=== PATIENT | male | born 1950 | race Caucasian/White ===

== ENCOUNTER 2018-03-02 15:11 | Inpatient (IN) | payer MEDICARE, SELFPAY ==
[2018-03-02] VITALS (8 sets, daily range): BP systolic 84–138; BP diastolic 62–97; PULSE 94–118; RESP 15–19; TEMP 36.9–37.1; O2SAT 96–98; BMI 29.7
--- NOTE | 2018-03-02 15:24 | EKG12_ITS ---
Test Reason : SYNCOPE Blood Pressure : / mmHG Vent. Rate : 105 BPM Atrial Rate : 159 BPM P-R Int : 000 ms QRS Dur : 090 ms QT Int : 350 ms P-R-T Axes : 000 -55 -08 degrees QTc Int : 462 ms Atrial fibrillation Left anterior fascicular block Poor R wave progression Abnormal ECG Confirmed by ROBBIN MICHELLE, ALISTAIR ([id number]), news videotape editor JOSE NICHOLS ([id number]) on 03/04/2018 2:45:22 PM Referred By: HAYDEE Confirmed By:ALISTAIR SIEGEL MD
[2018-03-02] MEDS: 0.9% Normal Saline 1,000 ML 1000 ML IV (15:29)
--- NOTE | 2018-03-02 15:30 | RAD_ITS ---
STUDY: X-RAY CHEST REASON FOR EXAM: Male, 67 years old. CHEST PAIN TECHNIQUE: Single AP portable view of the chest. COMPARISON: None. FINDINGS: The lungs are clear and expanded. There is no demonstrated pleural abnormality. Normal size heart. Normal mediastinum and tj. Normal visualized pulmonary arteries. Normal visualized aortic arch and descending thoracic aorta. There are diffuse degenerative changes of the visualized thoracic spine. There is degenerative osteoarthritis of the bilateral shoulders. There is no demonstrated abnormality of the visualized soft tissue structures of the upper abdomen. RAD/Chest 1 View (Portable) IMPRESSION: Degenerative changes, as described above. No demonstrated acute cardiopulmonary process. Electronically Signed: Sean Coronado MD at 15:49 EDT Tel , Service support ,
--- NOTE | 2018-03-02 15:30 | NURSING ---
NO OLD EKGS
[2018-03-02 15:40] LABS: Absolute Lymphocyte Count 1.02 X10^3/ul (0.83-4.51); Absolute Neutrophil Count 5.8 X10^3/uL (2.0-7.7); Basophil# 0.02 X10^3/uL; Basophil% 0.3 % (0-1); Eosinophil# 0.07 X10^3/uL; Hematocrit 43.4 % (40-54); Hemoglobin 14.3 g/dl (13.0-16.5); Lymphocyte # 1.02 X10^3/ul (4.0); Lymphocyte % 13.9 % (19-41); Mean Corp Hgb Conc 32.9 g/gl (32-36); Mean Corpuscular Hgb 27.6 pg (27.0-32.0); Mean Corpuscular Volume 83.8 fL (80-94); Mean Platelet Vol. 9.5 fl (6.2-12.0); Monocyte# 0.45 X10^3/uL; Monocyte% 6.1 % (0-10); Neutrophil # 5.76 X10^3/uL (2.7-7.7); Neutrophil % 78.6 % (47-70); Platelet Count 149 K/mm3 (150-450); RBC Distribution Width CV 14.4 % (11.6-14.6); RBC Distribution Width SD 44.4 fl (35.1-43.9); Red Blood Count 5.18 M/mm3 (4.6-6.2); White Blood Count 7.3 K/mm3 (4.4-11.0)
[2018-03-02 15:46] LABS: POSITIVE COUNT NO; POSITIVE DIFFERENTIAL NO; POSITIVE MORPHOLOGY NO
--- NOTE | 2018-03-02 15:46 | ED.DCSUM_ITS ---
- ER Visit Summary Date of Service: 03/02/18 Chief Complaint: Syncope History of Present Illness: The patient is a 67 M who reports feeling lightheaded today. He leaned against a door, slid down into a seated position. He thinks he may passed out briefly. Patient reports a history of a prior stroke and his heart skips beats. He is currently on Eliquis but only takes his medications intermittently. He cannot tell me specifically why he is on Eliquis. He does tell me he has not been eating and drinking much lately stating that he does not have money for food. Primary care is supplied through the [facility]. Patient admits to history of prior stroke, hypertension, enlarged prostate, and heart skipping a beat. It does appear that he has had prior kidney stones as well. Physical Examination: Blood pressure is 84/62, temperature 98.4, heart rate 111 , respiratory rate 15, pulse ox 98% on room air. Patient sitting upright in bed no acute distress. He is alert and talkative. Heart is tachycardic and irregular. Lung sounds are clear. Abdomen is soft nontender. Neuro exam reveals no focal deficits. Test Results: EKG is A. fib at 105 with no sign of acute ischemia. Portable chest x-ray shows no acute process. CBC is normal other than a platelet count of 149,000. Chemistry studies unremarkable. Coags revealed INR 1.4. Again patient is on Eliquis. Troponin is less than 0.015. Emergency Department Course and Treatment: With IV fluids patient's systolic blood pressure is just now up to 113. Heart rate remains variable between 85 and 115. I do feel patient will require overnight observation patient for medication management. [facility] has [facility] a and B. He wishes to stay here for admission. Treatment Plan: [] Disposition: Admit Impression: 1. A. fib RVR 2. Hypotension 3. Syncope This note was generated with [employer] dictation software. It may contain incorrect words, spelling, and punctuation that were not noted in review of the chart prior to signing ED Disposition - Plan for ED Patient: Chief Complaint: Syncope Referrals: NOT,DEFINED [NON-STAFF] -
--- NOTE | 2018-03-02 15:48 | NURSING ---
coags are hemolized. lab will reprint labels
[2018-03-02 16:00] LABS: Anion Gap 6 (5-15); BUN 21 mg/dL (7-18); BUN/Creat Ratio 16.4 RATIO (10-20); Calcium,Total 8.7 mg/dL (8.5-10.1); Chloride 110 mmol/L (98-107); Creatinine, Serum 1.28 mg/dL (0.70-1.30); EST Glomerular Filtration Rate 59 mL/min (>60); Est Glom Filt Rate - Afr Amer 72 mL/min (>60); Estimated Creatinine Clearance 61.55 ml/min; Glucose 93 mg/dL (74-106); Potassium 3.9 mmol/L (3.5-5.1); Sodium Level 144 mmol/L (136-145)
[2018-03-02 16:35] LABS: International Normalized Ratio 1.4
[2018-03-02 16:36] LABS: Partial Thromboplast Time 31.5 Seconds (24.1-36.2)
--- NOTE | 2018-03-02 17:16 | NURSING ---
DR COTE FOR DR HUBBARD
--- NOTE | 2018-03-02 17:30 | NURSING ---
PCU SYNCOPE, AFIB WITH RVR, HYPOTENSION ASHELFAH
--- NOTE | 2018-03-02 17:40 | PCM.HP.STD ---
<Cindy Olivia - Last Filed: 03/02/18 18:01> Problem List (1) HTN (hypertension) Status: Chronic (2) HLD (hyperlipidemia) Status: Chronic (3) BPH (benign prostatic hyperplasia) Status: Chronic (4) Syncope Status: Acute (5) Afib Status: Chronic (6) History of CVA (cerebrovascular accident) Status: Chronic (7) History of nephrolithiasis Status: Chronic History of Present Illness Date of Admission: 03/02/18 Chief Complaint: Syncope. The patient is a 67 year old M who presents to the emergency room following an episode of syncope. Patient states he does not have money for food and was waiting in line at a food bank. He states it was hot and he has difficulty standing for long periods of time due to arthritis. Patient states he felt like he needed to sit down. He states he had a brief episode of passing out. He states by the time the squad arrived, he felt fine. He denies dizziness, chest pain, shortness of breath. Patient is a poor informant. He reports he is on Eliquis. Is unable to state other medications he is taking. He also admits he does not take them as prescribed. Patient follows with [facility]. He has a past medical history of CVA, hypertension, hyperlipidemia, BPH, atrial fibrillation, tobacco dependence, alcohol use. He states he has had an abnormal heart rhythm since . He denies history of ablation. He states he does not follow with a senior java architect. Patient states he is currently going through nicotine withdrawal and requesting nicotine patch. Past Medical History Past Medical History (Chronic Problems): Chronic Problems HTN (hypertension) (Chronic) HLD (hyperlipidemia) (Chronic) BPH (benign prostatic hyperplasia) (Chronic) Afib (Chronic) History of CVA (cerebrovascular accident) (Chronic) History of nephrolithiasis (Chronic) Allergies Fish Containing Products Allergy (Verified 03/02/18 15:22) Hives Penicillins [PCN] Allergy (Verified 03/02/18 15:22) Unknown Sulfa (Sulfonamide Antibiotics) Allergy (Verified 03/02/18 15:22) Unknown Home Medications: Ambulatory Orders Medication Instructions Recorded Apixaban [Eliquis] 5 mg PO BID 03/02/18 Surgical History: - - Prostate biopsy Psychiatric History: No pertinent psych hx Lives: Alone Smoking Status: Current every day smoker Tobacco Use: Cigarettes - Half pack per day Alcohol: Occasional Drugs: None - *Family History Maternal History Items: No pertinent history Paternal History Items: No pertinent history Review of Systems Constitutional: Denies: Chills, Fever, Weight Change HEENT: Denies: Head Aches, Sinus Congestion, Sinus Drainage Cardiovascular: Reports: Syncope. Denies: Chest Pain, Edema, Light Headedness, Palpitations Respiratory: Denies: Cough, Shortness of breath at rest, Sputum production Gastrointestinal: Denies: Abdominal Pain, Nausea, Vomiting Genitourinary: Denies: Dysuria, Hematuria, Incontinence, Retention Musculoskeletal: Reports: Joint Pain - Arthritic pain. Denies: Joint Tenderness Skin: Denies: Rash, Wounds Neurological: Denies: Numbness, Tingling, Focal weakness Hematologic/ Lymphatic: Denies: Easy Bruising, Easy Bleeding VTE Information - Inpt Only VTE Present on Admission: No VTE Mechan Device Prophylaxis: None VTE Pharm Prophylaxis ordered?: Yes Patient Problems: Active and Suspected Problems Syncope (Acute) - Physical Exam General: Alert, Oriented x3, Cooperative, No apparent distress HEENT: Atraumatic, PERRLA, EOMI, Normocephalic Oral: Moist Mucosa Neck: Supple, No JVD, Negative Carotid Bruits Lungs: Clear to auscultation, Diminished Cardiovascular: No murmurs, Tachycardic, - - Atrial fibrillation Abdomen: Bowel Sounds Present, Soft, Non Tender, Non-Distended Extremities: No clubbing, No cyanosis, No edema, Capillary Refill Less than 3 Seconds Skin: No rashes, No breakdown Musculoskeletal: No Tenderness to Palpation of Joints or Extremities Neurological: Cranial nerves II-XII grossly intact, Neuro grossly intact Psych/Mental Status: Normal Affect Vital Signs Temp Pulse Resp BP Pulse Ox 98.4 F 110 H 15 89/62 L 98 03/02/18 15:13 03/02/18 15:13 03/02/18 15:13 03/02/18 15:13 03/02/18 15:13 Oxygen Delivery Method Room Air Weight: 102.058 kg Body Mass Index (BMI) 29.7 Laboratory Tests Past 24 Hrs 03/02/18 03/02/18 03/02/18 15:20 15:20 15:20 WBC 7.3 RBC 5.18 Hgb 14.3 Hct 43.4 MCV 83.8 MCH 27.6 MCHC 32.9 RDW 14.4 RDW Differential 44.4 H Plt Count 149 L MPV 9.5 Immature Gran % (Auto) 0.100 Neut % (Auto) 78.6 H Lymph % (Auto) 13.9 L [place] % (Auto) 6.1 Eos % (Auto) 1.0 Baso % (Auto) 0.3 Absolute Neuts (auto) 5.8 Absolute Lymphs (auto) 1.02 Total Counted Not Reportable PT Cancelled INR Cancelled APTT Cancelled Sodium 144 Potassium 3.9 Chloride 110 H Carbon Dioxide 28.0 Anion Gap 6 BUN 21 H Creatinine 1.28 Estim Creat Clear Calc 61.55 Est GFR (MDRD) Af Amer 72 Est GFR (MDRD) Non-Af 59 L BUN/Creatinine Ratio 16.4 Glucose 93 Calcium 8.7 Troponin I < 0.015 03/02/18 16:10 WBC RBC Hgb Hct MCV MCH MCHC RDW RDW Differential Plt Count MPV Immature Gran % (Auto) Neut % (Auto) Lymph % (Auto) [place] % (Auto) Eos % (Auto) Baso % (Auto) Absolute Neuts (auto) Absolute Lymphs (auto) Total Counted PT 17.0 H INR 1.4 APTT 31.5 Sodium Potassium Chloride Carbon Dioxide Anion Gap BUN Creatinine Estim Creat Clear Calc Est GFR (MDRD) Af Amer Est GFR (MDRD) Non-Af BUN/Creatinine Ratio Glucose Calcium Troponin I Assessment/Plan All Active Problems Syncope (Acute) 1. Syncope-EKG in ER A. fib, no evidence of ischemia. Chest x-ray without acute process. Initial troponin negative. Lab work unremarkable. Obtain records from [facility]. Cycle enzymes. Check orthostatic vitals. Obtain echocardiogram. Check TSH, Mg, phos. Monitor telemetry. 2. Atrial fibrillation with RVR-per patient, atrial fibrillation is not new. Unknown if chronic or paroxysmal. Patient does not know his home medications. Request medication list from [facility]. Metoprolol 25mg BID for now. Monitor telemetry. Continue Eliquis. Consult cardiology. Obtain echo as noted above. 3. Hypotension- resolved with IV fluids. Continue IV fluids. Continue to monitor. 4. History of CVA-no residual weakness. PT/OT. 5. Hypertension-stable, began on metoprolol 25 mg twice daily pending obtaining home medication list. 6. Hyperlipidemia-FLP in a.m. 7. BPH- resume home medication [facility]. 8. Tobacco dependence-encourage smoking cessation. Nicotine replacement patch. 9. Alcohol use-unclear how much patient drinks. He denies daily alcohol use. CIWA protocol. DVT prophylaxis-Eliquis This patient was seen by SHALINI Blair under the supervision of Dr. Cade. <RayoJolly E - Last Filed: 03/02/18 18:24> History of Present Illness The patient is a 67 year old M [] Past Medical History Allergies Fish Containing Products Allergy (Verified 03/02/18 15:22) Hives Penicillins [PCN] Allergy (Verified 03/02/18 15:22) Unknown Sulfa (Sulfonamide Antibiotics) Allergy (Verified 03/02/18 15:22) Unknown - Physical Exam Vital Signs Temp Pulse Resp BP Pulse Ox 98.4 F 115 H 19 H 130/97 H 98 03/02/18 15:13 03/02/18 17:53 03/02/18 17:53 03/02/18 17:53 03/02/18 17:53 Assessment/Plan Hospitalist note: I am seeing this patient in conjunction with Cindy Olivia. I independently seen and examined the patient. History and physical, laboratory data and imaging studies reviewed and I agree with above admission treatment plan. Patient presented to the ER because of syncopal episode. It was preceded by dizziness, was out for about few seconds and regained his consciousness quickly. He denies any preceding chest pain or shortness of breath. He does have history of hypertension but he is not compliant with his home medications. He history of chronic atrial fibrillation but he is not sure what he takes for it except liquids. He is aware that he is on Eliquis but he does not take any other medication and he is not sure exactly what medication he takes at home. He history of stroke with no residual deficit few years ago. Upon arrival to ER, he was afebrile, was in A. fib with RVR and hypotensive. He received bolus of IV fluids and his blood pressure improved, heart rate remained fluctuating from 100 up to 120s. Routine blood work was unremarkable. EKG revealed atrial fibrillation, rate is around 105, no acute ischemic changes. Troponin is negative. Chest x-ray showed no acute findings. - Physical Exam General: Alert, Oriented x3, Cooperative, No apparent distress. HEENT: Atraumatic, PERRLA, EOMI. Neck: Supple, No JVD, Negative Carotid Bruits, Trachea Midline, Thyroid Normal. Lungs: Diminished breath sounds bilateral, otherwise clear, No rhonchi, No wheeze, No rales. Cardiovascular: Normal S1, Normal S2, irregular, tachycardia, PMI Normal. Abdomen: Bowel Sounds Present, Soft, Non Tender, Non-Distended, No Hepato-splenomegaly. Extremities: No clubbing, No cyanosis, No edema Skin: No rashes, No breakdown Neurological: Neuro grossly intact Assessment and plan: #1 syncope: Likely because of A. fib with RVR Leading to hypotension. Blood pressure improved after IV fluids, last blood pressure was 130/97. EKG reviewed, revealed A. fib with RVR, no acute ischemic changes. Troponin is negative. Plan to admit to PCU, cardiac monitoring, serial cardiac enzymes, repeat EKG tomorrow morning, check serum magnesium and TSH. #2 A. fib with RVR: Apparently, patient has history of chronic A. fib, has been on Eliquis for anti-coagulation. He is not aware of the medication that he takes for rate control. Plan to start him on metoprolol for rate control, continue Eliquis for anti-cognition, 2D echocardiogram, cardiology consult. #3 other chronic medical problems: Continue home medications when home medication list obtained from [facility]. This note was generated with [employer] dictation software. It may contain incorrect words, spelling, and punctuation that were not noted in checking the note before signing. Code Visit Inpatient E&M: 35878 Init Hosp L3
--- NOTE | 2018-03-02 17:50 | HP.PCM_ITS ---
<Cindy Olivia - Last Filed: 03/02/18 18:01> Problem List (1) HTN (hypertension) Status: Chronic (2) HLD (hyperlipidemia) Status: Chronic (3) BPH (benign prostatic hyperplasia) Status: Chronic (4) Syncope Status: Acute (5) Afib Status: Chronic (6) History of CVA (cerebrovascular accident) Status: Chronic (7) History of nephrolithiasis Status: Chronic History of Present Illness Date of Admission: 03/02/18 Chief Complaint: Syncope. The patient is a 67 year old M who presents to the emergency room following an episode of syncope. Patient states he does not have money for food and was waiting in line at a food bank. He states it was hot and he has difficulty standing for long periods of time due to arthritis. Patient states he felt like he needed to sit down. He states he had a brief episode of passing out. He states by the time the squad arrived, he felt fine. He denies dizziness, chest pain, shortness of breath. Patient is a poor informant. He reports he is on Eliquis. Is unable to state other medications he is taking. He also admits he does not take them as prescribed. Patient follows with [facility]. He has a past medical history of CVA, hypertension, hyperlipidemia, BPH, atrial fibrillation, tobacco dependence, alcohol use. He states he has had an abnormal heart rhythm since . He denies history of ablation. He states he does not follow with a closed circuit screen watcher. Patient states he is currently going through nicotine withdrawal and requesting nicotine patch. Past Medical History Past Medical History (Chronic Problems): Chronic Problems HTN (hypertension) (Chronic) HLD (hyperlipidemia) (Chronic) BPH (benign prostatic hyperplasia) (Chronic) Afib (Chronic) History of CVA (cerebrovascular accident) (Chronic) History of nephrolithiasis (Chronic) Allergies Fish Containing Products Allergy (Verified 03/02/18 15:22) Hives Penicillins [PCN] Allergy (Verified 03/02/18 15:22) Unknown Sulfa (Sulfonamide Antibiotics) Allergy (Verified 03/02/18 15:22) Unknown Home Medications: Ambulatory Orders Medication Instructions Recorded Apixaban [Eliquis] 5 mg PO BID 03/02/18 Surgical History: - - Prostate biopsy Psychiatric History: No pertinent psych hx Lives: Alone Smoking Status: Current every day smoker Tobacco Use: Cigarettes - Half pack per day Alcohol: Occasional Drugs: None - *Family History Maternal History Items: No pertinent history Paternal History Items: No pertinent history Review of Systems Constitutional: Denies: Chills, Fever, Weight Change HEENT: Denies: Head Aches, Sinus Congestion, Sinus Drainage Cardiovascular: Reports: Syncope. Denies: Chest Pain, Edema, Light Headedness, Palpitations Respiratory: Denies: Cough, Shortness of breath at rest, Sputum production Gastrointestinal: Denies: Abdominal Pain, Nausea, Vomiting Genitourinary: Denies: Dysuria, Hematuria, Incontinence, Retention Musculoskeletal: Reports: Joint Pain - Arthritic pain. Denies: Joint Tenderness Skin: Denies: Rash, Wounds Neurological: Denies: Numbness, Tingling, Focal weakness Hematologic/ Lymphatic: Denies: Easy Bruising, Easy Bleeding VTE Information - Inpt Only VTE Present on Admission: No VTE Mechan Device Prophylaxis: None VTE Pharm Prophylaxis ordered?: Yes Patient Problems: Active and Suspected Problems Syncope (Acute) - Physical Exam General: Alert, Oriented x3, Cooperative, No apparent distress HEENT: Atraumatic, PERRLA, EOMI, Normocephalic Oral: Moist Mucosa Neck: Supple, No JVD, Negative Carotid Bruits Lungs: Clear to auscultation, Diminished Cardiovascular: No murmurs, Tachycardic, - - Atrial fibrillation Abdomen: Bowel Sounds Present, Soft, Non Tender, Non-Distended Extremities: No clubbing, No cyanosis, No edema, Capillary Refill Less than 3 Seconds Skin: No rashes, No breakdown Musculoskeletal: No Tenderness to Palpation of Joints or Extremities Neurological: Cranial nerves II-XII grossly intact, Neuro grossly intact Psych/Mental Status: Normal Affect Vital Signs Temp Pulse Resp BP Pulse Ox 98.4 F 110 H 15 89/62 L 98 03/02/18 15:13 03/02/18 15:13 03/02/18 15:13 03/02/18 15:13 03/02/18 15:13 Oxygen Delivery Method Room Air Weight: 102.058 kg Body Mass Index (BMI) 29.7 Laboratory Tests Past 24 Hrs 03/02/18 03/02/18 03/02/18 15:20 15:20 15:20 WBC 7.3 RBC 5.18 Hgb 14.3 Hct 43.4 MCV 83.8 MCH 27.6 MCHC 32.9 RDW 14.4 RDW Differential 44.4 H Plt Count 149 L MPV 9.5 Immature Gran % (Auto) 0.100 Neut % (Auto) 78.6 H Lymph % (Auto) 13.9 L [place] % (Auto) 6.1 Eos % (Auto) 1.0 Baso % (Auto) 0.3 Absolute Neuts (auto) 5.8 Absolute Lymphs (auto) 1.02 Total Counted Not Reportable PT Cancelled INR Cancelled APTT Cancelled Sodium 144 Potassium 3.9 Chloride 110 H Carbon Dioxide 28.0 Anion Gap 6 BUN 21 H Creatinine 1.28 Estim Creat Clear Calc 61.55 Est GFR (MDRD) Af Amer 72 Est GFR (MDRD) Non-Af 59 L BUN/Creatinine Ratio 16.4 Glucose 93 Calcium 8.7 Troponin I < 0.015 03/02/18 16:10 WBC RBC Hgb Hct MCV MCH MCHC RDW RDW Differential Plt Count MPV Immature Gran % (Auto) Neut % (Auto) Lymph % (Auto) [place] % (Auto) Eos % (Auto) Baso % (Auto) Absolute Neuts (auto) Absolute Lymphs (auto) Total Counted PT 17.0 H INR 1.4 APTT 31.5 Sodium Potassium Chloride Carbon Dioxide Anion Gap BUN Creatinine Estim Creat Clear Calc Est GFR (MDRD) Af Amer Est GFR (MDRD) Non-Af BUN/Creatinine Ratio Glucose Calcium Troponin I Assessment/Plan All Active Problems Syncope (Acute) 1. Syncope-EKG in ER A. fib, no evidence of ischemia. Chest x-ray without acute process. Initial troponin negative. Lab work unremarkable. Obtain records from [place]. Cycle enzymes. Check orthostatic vitals. Obtain echocardiogram. Check TSH, Mg, phos. Monitor telemetry. 2. Atrial fibrillation with RVR-per patient, atrial fibrillation is not new. Unknown if chronic or paroxysmal. Patient does not know his home medications. Request medication list from [place]. Metoprolol 25mg BID for now. Monitor telemetry. Continue Eliquis. Consult cardiology. Obtain echo as noted above. 3. Hypotension- resolved with IV fluids. Continue IV fluids. Continue to monitor. 4. History of CVA-no residual weakness. PT/OT. 5. Hypertension-stable, began on metoprolol 25 mg twice daily pending obtaining home medication list. 6. Hyperlipidemia-FLP in a.m. 7. BPH- resume home medication [facility] 8. Tobacco dependence-encourage smoking cessation. Nicotine replacement patch. 9. Alcohol use-unclear how much patient drinks. He denies daily alcohol use. CIWA protocol. DVT prophylaxis-Eliquis This patient was seen by SHALINI Blair under the supervision of Dr. Cade. <RayoJolly E - Last Filed: 03/02/18 18:24> History of Present Illness The patient is a 67 year old M [] Past Medical History Allergies Fish Containing Products Allergy (Verified 03/02/18 15:22) Hives Penicillins [PCN] Allergy (Verified 03/02/18 15:22) Unknown Sulfa (Sulfonamide Antibiotics) Allergy (Verified 03/02/18 15:22) Unknown - Physical Exam Vital Signs Temp Pulse Resp BP Pulse Ox 98.4 F 115 H 19 H 130/97 H 98 03/02/18 15:13 03/02/18 17:53 03/02/18 17:53 03/02/18 17:53 03/02/18 17:53 Assessment/Plan Hospitalist note: I am seeing this patient in conjunction with Cindy Olivia. I independently seen and examined the patient. History and physical, laboratory data and imaging studies reviewed and I agree with above admission treatment plan. Patient presented to the ER because of syncopal episode. It was preceded by dizziness, was out for about few seconds and regained his consciousness quickly. He denies any preceding chest pain or shortness of breath. He does have history of hypertension but he is not compliant with his home medications. He history of chronic atrial fibrillation but he is not sure what he takes for it except liquids. He is aware that he is on Eliquis but he does not take any other medication and he is not sure exactly what medication he takes at home. He history of stroke with no residual deficit few years ago. Upon arrival to ER, he was afebrile, was in A. fib with RVR and hypotensive. He received bolus of IV fluids and his blood pressure improved, heart rate remained fluctuating from 100 up to 120s. Routine blood work was unremarkable. EKG revealed atrial fibrillation, rate is around 105, no acute ischemic changes. Troponin is negative. Chest x-ray showed no acute findings. - Physical Exam General: Alert, Oriented x3, Cooperative, No apparent distress. HEENT: Atraumatic, PERRLA, EOMI. Neck: Supple, No JVD, Negative Carotid Bruits, Trachea Midline, Thyroid Normal. Lungs: Diminished breath sounds bilateral, otherwise clear, No rhonchi, No wheeze, No rales. Cardiovascular: Normal S1, Normal S2, irregular, tachycardia, PMI Normal. Abdomen: Bowel Sounds Present, Soft, Non Tender, Non-Distended, No Hepato- splenomegaly. Extremities: No clubbing, No cyanosis, No edema Skin: No rashes, No breakdown Neurological: Neuro grossly intact Assessment and plan: #1 syncope: Likely because of A. fib with RVR Leading to hypotension. Blood pressure improved after IV fluids, last blood pressure was 130/97. EKG reviewed , revealed A. fib with RVR, no acute ischemic changes. Troponin is negative. Plan to admit to PCU, cardiac monitoring, serial cardiac enzymes, repeat EKG tomorrow morning, check serum magnesium and TSH. #2 A. fib with RVR: Apparently, patient has history of chronic A. fib, has been on Eliquis for anti-coagulation. He is not aware of the medication that he takes for rate control. Plan to start him on metoprolol for rate control, continue Eliquis for anti-cognition, 2D echocardiogram, cardiology consult. #3 other chronic medical problems: Continue home medications when home medication list obtained from [place]. This note was generated with [employer] dictation software. It may contain incorrect words, spelling, and punctuation that were not noted in checking the note before signing. Code Visit Inpatient E&M: 78954 Init Hosp L3
[2018-03-02] MEDS: 0.9% Normal Saline 1,000 ML 150 ML IV (17:54)
[2018-03-02 18:51] LABS: Magnesium 1.8 mg/dL (1.6-2.6); Phosphorus 2.7 mg/dL (2.5-4.9); Thyroid Stim Hormone (TSH) 1.32 uIU/mL (0.358-3.74)
--- NOTE | 2018-03-02 19:00 | ECHOD_ITS ---
Reason For Study: AFIB Procedure This was a 2D Doppler, Color Flow transthoracic echocardiogram. Exam performed portable in patient room. Left Ventricle Normal LV size. Left ventricular systolic function is lower limits of normal. The estimated ejection fraction is 50 %. Unable to assess diastolic dysfunction due to arrhythmia. No regional wall motion abnormalities noted. Right Ventricle Normal RV size. Normal systolic function. Atria The left atrium is mildly enlarged. Normal right atrium. Mitral Valve Normal mitral valve. Mild (1+) eccentric mitral valve insufficiency. Tricuspid Valve Normal tricuspid valve. Mild tricuspid valve insufficiency. Pulmonary artery systolic pressure is 26 mmHg. Aortic Valve The aortic valve is not well visualized. Pulmonic Valve Normal pulmonic valve. Great Vessels Normal aortic root. The pulmonary artery is normal size. Normal inferior vena cava. Pericardium/Pleural No pericardial effusion. MMode/2D Measurements & Calculations LVIDd: 4.8 cm IVSd: 0.98 cm Ao root diam: 3.3 cm LVIDs: 3.5 cm LVPWd: 0.94 cm LA dimension: 4.7 cm RVDd: 3.5 cm FS: 28.2 % LAV(MOD-bp): 68.2 ml LA A4 area: 23.2 cm2 RA A4 area: 13.9 cm2 LAV(MOD-bp) Indexed: 30.4 ml/m2 LAV(MOD-sp2): 63.0 ml LAV(MOD-sp4): 72.3 ml Doppler Measurements & Calculations Ao V2 max: 120.5 cm/sec LV V1 max: 105.6 cm/sec TR max aneesh: 235.5 cm/sec Ao max P.8 mmHg LV V1 max P.5 mmHg TR max P.2 mmHg Interpretation Summary Normal LV size. Left ventricular systolic function is lower limits of normal. The estimated ejection fraction is 50 %. The left atrium is mildly enlarged. Mild (1+) eccentric mitral valve insufficiency. Pulmonary artery systolic pressure is 26 mmHg. Unable to assess diastolic dysfunction due to arrhythmia. Ordering Physician: Jolly Cade Referring Physician: [facility] Performed By: Renita Hooper RDCS, RVT
[2018-03-02] MEDS: Metoprolol Tartrate 5 MG/5 ML Vial IV (20:17)
[2018-03-02] MEDS: 0.9% NaCl Peripheral Flush Adult/Peds IV (20:18)
[2018-03-02] MEDS: Acetaminophen 325 MG Tablet 650 MG PO (20:26)
[2018-03-02] MEDS: APIXABAN 5 MG TABLET PO (20:27)
[2018-03-02 20:36] LABS: Magnesium 1.8 mg/dL (1.6-2.6)
[2018-03-03] VITALS (11 sets, daily range): BP systolic 99–125; BP diastolic 58–87; PULSE 97–129; RESP 18; TEMP 36.4–37.1; O2SAT 92–96
[2018-03-03] MEDS: 0.9% NaCl Peripheral Flush Adult/Peds IV (05:39)
[2018-03-03] MEDS: Metoprolol Tartrate 5 MG/5 ML Vial IV (05:39)
[2018-03-03] MEDS: 0.9% Normal Saline 1,000 ML 100 ML IV (05:47)
--- NOTE | 2018-03-03 06:38 | PCM.CONS.C ---
Reason for Consult Date of Consultation: 03/03/18 Reason for Consultation: Irregular heartbeat and syncopal episode History of Present Illness: The patient is a 67 year old M who presented to the emergency room following an episode of syncope. Patient was apparently standing in line when he felt that he was going to pass out and he slowly lowered to the ground and people helped him in line. He does not think that he passed out completely to it is reported that he had a brief episode. The emergency medical squad was called and then they brought him to the emergency room. In the emergency room he was noted to be in atrial fibrillation with rapid ventricular response rate and hypotensive and required intravenous fluids with improvement in his rate. Cardiology was called for follow-up. He has previously not seen any chief customer officer in the past and has not been very compliant with his medical care though he does go to the [facility]. He denies any chest pain or shortness of breath or paroxysmal nocturnal dyspnea he has not had any previous episodes of syncope he does not feel his irregular heartbeat. Past Medical History Allergies/Adverse Reactions: Allergies Fish Containing Products Allergy (Verified 03/02/18 15:22) Hives Penicillins [PCN] Allergy (Verified 03/02/18 15:22) Unknown Sulfa (Sulfonamide Antibiotics) Allergy (Verified 03/02/18 15:22) Unknown Home Medications: Ambulatory Orders Medication Instructions Recorded Alfuzosin HCl [Alfuzosin HCl ER] 10 mg PO DAILY 03/02/18 Apixaban [Eliquis] 5 mg PO BID 03/02/18 Lisinopril [Zestril] 5 mg PO DAILY 03/02/18 Metoprolol Succinate [Toprol Xl] 150 mg PO DAILY 03/02/18 Past Medical History (Chronic Problems): Chronic Problems HTN (hypertension) (Chronic) HLD (hyperlipidemia) (Chronic) BPH (benign prostatic hyperplasia) (Chronic) Afib (Chronic) History of CVA (cerebrovascular accident) (Chronic) History of nephrolithiasis (Chronic) Surgical History: - - Prostate biopsy Psychiatric History: No pertinent psych hx - *Family History Maternal History Items: No pertinent history Paternal History Items: No pertinent history Lives: Alone Smoking Status: Current every day smoker Tobacco Use: Cigarettes, Cigars, Pipe Alcohol: Occasional Drugs: None Review of Systems - Review of Systems General: Denies: Fever, Night Sweats, Fatigue Cardiovascular: Reports: Dizziness. Denies: Chest Discomfort, Shortness of Breath, Orthopnea, PND, Peripheral Edema, Palpitations, Lightheadedness, Near Syncope, Syncope Respiratory: Denies: Cough, Sputum Production, Hemoptysis Gastrointestinal: Denies: Hematemesis, Hematochezia, Melena Genitourinary: Denies: Dysuria, Hematuria Skin: Denies: Rash Subjectve: Pleasant gentleman in no apparent distress Objective: Vital Signs Temp Pulse Resp BP Pulse Ox 97.5 F L 109 H 18 113/80 92 03/03/18 05:41 03/03/18 05:41 03/03/18 05:41 03/03/18 05:41 03/03/18 05:41 Oxygen Delivery Method Room Air Weight: 225 lb 1.471 oz Body Mass Index (BMI) 29.7 Intake and Output for Last 24 Hours 03/01/18 03/02/18 03/03/18 23:59 23:59 23:59 Intake Total 965 / 965 Output Total 200 / 200 500 / 500 Balance -200 / -200 465 / 465 General: Awake, Alert, Oriented x 3 HEENT: PERRL, EOMI, Sclera Non Icteric Neck: Supple, Good ROM, No Lymph Node Enlargement Lungs: Clear to auscultation Cardiovascular: Irregular Rhythm, Normal S1, Normal S2, No Murmurs, No Rubs, No Gallops Vascular: No Carotid Bruits, Normal Femoral Pulses, Normal Radial Pulses, Normal Dorsalis Pedal Pulse, Normal Posterior Tibial Pulses Abdomen: Bowel Sounds Present, Soft, Non Tender, No HSM, No Organomegaly Extremities: No Cyanosis, No Clubbing, No edema Neurological: No Focal Motor or Sensory Deficit 03/02/18 17:50: Troponin I < 0.015 03/02/18 19:50: Magnesium 1.8 03/02/18 22:07: Troponin I < 0.015 03/03/18 01:55: Troponin I < 0.015 Rhythm: EKG: Fibrillation with a controlled ventricular response rate. Assessment/Plan 1. Atrial fibrillation. Patient presented with a near syncopal episode was noted to be in atrial for ablation with rapid ventricular response rate responded well to intravenous fluids. My recommendation at this time would be to continue with beta-huber as well as his Eliquis and obtain an echocardiogram for risk stratification. Further recommendations will be made depending on the findings of the above. At this particular time however I do not think that any further workup necessary is required. His ventricular response rate appears to be better at this time together with his blood pressure. 2. Syncopal episode He appears to have had a presyncopal episode likely secondary to dehydration. As you know he is indigent and social service arrangements may need to be made to make sure that he is adequately hydrated and fed. I do not think that there is a reason for further workup of the above at this time. 3. Hypertension. He does have a history of hypertension for which he is on a beta-huber as well as THEO inhibitor. I do agree with keeping him on once a day medications as this would simplify his regimen and improve compliance. Thank you for allowing me to participate in the care of your patient. Please don't hesitate to call if any issues arise
[2018-03-03 06:40] LABS: Cholesterol 103 mg/dL (200); High Density Lipoprotein 20 mg/dL; Triglycerides 99 mg/dL; Very Low Density Lipoprotein 20 mg/dL (5-40)
[2018-03-03] MEDS: APIXABAN 5 MG TABLET PO (09:09)
[2018-03-03] MEDS: Metoprolol(XL)Succ 100 MG Tablet 150 MG PO (09:10)
[2018-03-03] MEDS: Lisinopril 5 MG Tablet PO (09:10)
[2018-03-03] MEDS: Tamsulosin HCl 0.4 MG Capsule PO (09:14)
--- NOTE | 2018-03-03 10:56 | CASEMGMT ---
SW met with patient for resources. SW spent an hour in the room. SW listened and provided emotional support. SW attempted numerous times to interject to offer resources, but patient would continue to talk and not listen to SW. The physician came into the room to talk with patient. He disagreed with what physician was trying to say and then looked at SW and continued to tell different stories. SW asked if he was familiar with [facility] and he said he was. He then went on to tell another story. SW asked if he would be able to go to [facility] for help with his med[facility]. He said he could if that is what he has to do. He then started to tell SW how the [facility] messed [facility] his [facility]. At that time SW left him a list of food pantries and churches with meals and encouraged him to go to [facility] for help with his meds. Kailey VELASCO MSW
--- NOTE | 2018-03-03 11:01 | PCM.DC ---
- Discharge Diagnoses Current Active Problems: Current Active and Chronic Problems HTN (hypertension) (Chronic) HLD (hyperlipidemia) (Chronic) BPH (benign prostatic hyperplasia) (Chronic) Syncope (Acute) Afib (Chronic) History of CVA (cerebrovascular accident) (Chronic) History of nephrolithiasis (Chronic) You will use the following diet at home:: Regular Discharge Activity: Return to Normal Activity Allergies/Adverse Reactions: Allergies Fish Containing Products Allergy (Verified 03/02/18 15:22) Hives Penicillins [PCN] Allergy (Verified 03/02/18 15:22) Unknown Sulfa (Sulfonamide Antibiotics) Allergy (Verified 03/02/18 15:22) Unknown Medications to take at Discharge Alfuzosin HCl [Alfuzosin HCl ER] 10 mg PO DAILY 03/02/18 Apixaban [Eliquis] 5 mg PO BID 03/02/18 Lisinopril [Zestril] 5 mg PO DAILY 03/02/18 Lisinopril [Zestril] 5 mg PO DAILY 30 Days #30 tab 03/03/18 Metoprolol(XL)Succ [Toprol Xl (Beta Vicky)] 150 mg PO DAILY 30 Days #30 tab 03/03/18 The following prescriptions were given: Lisinopril [Zestril] 5 mg PO DAILY 30 Days #30 tab Metoprolol(XL)Succ [Toprol Xl (Beta Vicky)] 150 mg PO DAILY 30 Days #30 tab Primary Care Physician: NOT,DEFINED [NON-STAFF] - Proposed Discharge Date: 03/03/18
--- NOTE | 2018-03-03 11:02 | PCM.DC.SUM ---
Discharge Date and Diagnosis - Problem List Patient Problems: Active and Suspected Problems Syncope (Acute) Date of Admission: 03/02/18 Date of Discharge: 03/03/18 - Primary Discharge Diagnosis Active and Suspected Problems Syncope (Acute) - Secondary Discharge Diagnosis Chronic Problems HTN (hypertension) (Chronic) HLD (hyperlipidemia) (Chronic) BPH (benign prostatic hyperplasia) (Chronic) Afib (Chronic) History of CVA (cerebrovascular accident) (Chronic) History of nephrolithiasis (Chronic) Hospital Course and Treatment Summary of Care Provided: Mr Carlo Nguyen is a 67 year old M who presented to the ED after a syncopal episode. He was standing in line when he felt that he was going to pass out and he slowly lowered to the ground and people helped him in line. Taken to the emergency room by the life squad, he was giving intravenous fluids the ED. Emergency room the patient was noted to have atrial fibrillation with rapid ventricular response . Cardiology was consulted and it was recommended to keep patient hydrated as this episode of syncope was most likely due to volume depletion. Regarding his atrial fibrillation his ventricular rate is under control with Toprol XL at 150 mg daily, he takes Eliquis for stroke prevention. Patient was discharged home in a stable condition and recommended to follow-up with his primary care physician. Physical exam at the time of discharge; vital signs were stable. He was alert and oriented to time place and person. He did not appear to be any form of distress. S1 and S2 heard no murmur or gallop Lung exam was clear to auscultation with no adventitious sounds. Abdomen was soft nontender with normal bowel sounds. extremity exam did not reveal any edema, palpable pulses bilaterally. Neurologic exam was grossly intact. Discharge Diet: No Restrictions Discharge Activity: Return to Normal Activity Home Medications: Medications to take at Discharge Alfuzosin HCl [Alfuzosin HCl ER] 10 mg PO DAILY 03/02/18 Apixaban [Eliquis] 5 mg PO BID 03/02/18 Lisinopril [Zestril] 5 mg PO DAILY 03/02/18 Lisinopril [Zestril] 5 mg PO DAILY 30 Days #30 tab 03/03/18 Metoprolol(XL)Succ [Toprol Xl (Beta Vicky)] 150 mg PO DAILY 30 Days #30 tab 03/03/18 Following Prescrptions Were Given to Patient: Lisinopril [Zestril] 5 mg PO DAILY 30 Days #30 tab Metoprolol(XL)Succ [Toprol Xl (Beta Vicky)] 150 mg PO DAILY 30 Days #30 tab Primary Care Physician: NOT,DEFINED [NON-STAFF] - Disposition: Home Patient Condition:: Good Medical Necessity - Tobacco Use Smoking Status: Current every day smoker Tobacco Use: Cigarettes, Cigars, Pipe Meaningful Use Info Meaningful Use Diagnoses (Choose all that apply): None applicable Code Visit OBSV E&M: 01619 Observation care discharge
--- NOTE | 2018-03-03 13:10 | CHAPLAIN ---
Type of Pastoral Visit _x__ Initial Visit ___ Follow-up Visit ___ On-call Visit ___ General Patient Visit ___ Spiritual Assessment ___ Family Conference ___ Bereavement ___ Rapid Response ___ Code Blue ___ Other (describe below) Pastoral Care Referral From _x__ Patient ___ Family ___ Nurse ___ Physician ___ Fisher Eel Spear ___ Chassis Driver ___ Other (describe below) Sacrament/Intervention _x__ Active listening ___ Anointing ___ Confucianism ___ Bereavement ___ Communion ___ Ann-Marie exploration ___ _x__ Life review _x__ Prayer ___ Reconciliation ___ Sacrament of Sick _x__ Supportive presence ___ Wedding ___ Other (describe below) Pastoral Comments patient initiated conversation about knowing the purposes and plans of God; patient was very talkative and went into great detail about a person living with him that has many troubles; pt says that knows that this person is detrimental to his own well being but he does not make the changes to make boundaries; pt welcomed a prayer
== END 2018-03-03 15:55 | disposition home or self-care (01) | DRG 641 ==
LOC: ED 15:55 → PCU 18:00
PROVIDERS: Nurse Practitioner Family; Admitting Provider Hospitalist; Emergency Provider Emergency Medicine; Visit Provider Internal Medicine
DX: E86.0 Dehydration (principal); I10 Essential (primary) hypertension; E78.5 Hyperlipidemia, unspecified; I48.91 Unspecified atrial fibrillation; N40.0 Benign prostatic hyperplasia without lower urinary tract symptoms; F17.200 Nicotine dependence, unspecified, uncomplicated; Z86.73 Personal history of transient ischemic attack (TIA), and cerebral infarction without residual deficits; Z87.442 Personal history of urinary calculi
CPT/HCPCS: 36415; 71045; 80048; 80061; 83735; 84100; 84443; 84484; 85025; 85610; 85730; 93005; 93306; 97162; 97165; 97802; 99285; J7030; A4216

== ENCOUNTER 2024-02-25 17:51 | Inpatient (IN) | payer OTHER, SELFPAY ==
[2024-02-25] VITALS (9 sets, daily range): BP systolic 84–145; BP diastolic 61–89; PULSE 79–110; RESP 9–17; TEMP 36.2–36.8; O2SAT 98–100; BMI 30.3; BMI 30.4
--- NOTE | 2024-02-25 18:05 | EKG12_ITS ---
Test Reason : AFIB Blood Pressure : / mmHG Vent. Rate : 077 BPM Atrial Rate : 000 BPM P-R Int : 000 ms QRS Dur : 114 ms QT Int : 396 ms P-R-T Axes : 000 -55 020 degrees QTc Int : 448 ms Atrial fibrillation Left anterior fascicular block Abnormal ECG Confirmed by AUSTIN MICHELLE, MAC ([id number]), photography editor KIA WILSON ([id number]) on 02/28/2024 8:49:54 AM Referred By: TL/UG Confirmed By:MAC AVILA MD
[2024-02-25] MEDS: 0.9% Normal Saline (1000mL) 1,000 ML 1000 ML IV ×2 (18:11→23:02)
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
--- NOTE | 2024-02-25 18:15 | RAD_ITS ---
INDICATION: dizzy and lightheaded EXAMINATION/TECHNIQUE: X-RAY - XR Chest 1 View COMPARISON: 03/02/2018. FINDINGS: The lungs are clear. Tortuous and calcified thoracic aorta. The heart is mildly enlarged. No pleural effusion or pneumothorax. Degenerative changes of the thoracic spine. RAD/Chest 1 View (Portable) IMPRESSION: No acute radiographic abnormalities. Electronically Signed: Boris Freeman MD at 18:40 EDT ,
[2024-02-25 18:18] LABS: Absolute Lymphocyte Count 1.49 X10^3/uL (0.83-4.51); Absolute Neutrophil Count 5.2 X10^3/uL (2.0-7.7); Basophil# 0.04 X10^3/uL; Basophil% 0.5 % (0-1); Eosinophil# 0.11 X10^3/uL; Eosinophils% 1.5 % (0-5); Hematocrit 44.7 % (40-54); Hemoglobin 14.3 g/dL (13.0-16.5); Lymphocyte # 1.49 X10^3/ul (0.83-4.51); Lymphocyte % 20.4 % (19-41); Mean Corpuscular Hgb 27.9 pg (27.0-32.0); Mean Corpuscular Volume 87.1 fL (80-94); Mean Platelet Vol. 9.8 fl (6.2-12.0); Monocyte# 0.47 X10^3/uL; Monocyte% 6.4 % (0-10); NRBC Flagged by Analyzer 0 % (0-5); Neutrophil # 5.18 X10^3/uL (2.7-7.7); Neutrophil % 70.9 % (47-70); Platelet Count 176 K/mm3 (150-450); RBC Distribution Width CV 14.6 % (11.6-14.6); RBC Distribution Width SD 46.8 fl (35.1-43.9); Red Blood Count 5.13 M/mm3 (4.6-6.2); White Blood Count 7.3 K/mm3 (4.4-11.0)
[2024-02-25 18:43] LABS: ALB/GLOB Ratio 0.8 RATIO (0.9-2.4); AST(SGOT) 10 U/L (15-37); Alanine Aminotransfer ALT/SGPT 10 U/L (16-61); Albumin, Serum 3.1 g/dL (3.2-5.0); Alkaline Phosphatase 92 U/L (45-117); Anion Gap 7 (5-15); BUN 18 mg/dL (7-18); BUN/Creat Ratio 14.9 RATIO (10-20); Calcium,Total 8.9 mg/dL (8.5-10.1); Chloride 108 mmol/L (98-107); Creatinine, Serum 1.21 mg/dL (0.70-1.30); EST Glomerular Filtration Rate 62 mL/min (>60); Est Glom Filt Rate - Afr Amer 75 mL/min (>60); Estimated Creatinine Clearance 66.87 ml/min; Glucose 125 mg/dL (74-106); Potassium 3.6 mmol/L (3.5-5.1); Protein, Total 7.1 g/dL (6.4-8.2); Sodium Level 141 mmol/L (136-145)
--- NOTE | 2024-02-25 19:05 | ED.RN ---
LACTIC 3.0. DR SAMANO
[2024-02-25] MEDS: 0.9% Normal Saline (1000mL) 1,000 ML 999 ML IV (21:16)
[2024-02-25 21:33] LABS: Mucous, Urine 0 SEEN /hpf (<or=2+); Red Blood Cells-Urine 0 SEEN /hpf (0-5)
[2024-02-25 21:48] LABS: Color, Urine Yellow (Yellow); Glucose, Dipstick Normal (Normal); Ketone-Dipstick 15 mg/dl (Negative); Leukocyte Esterase-Dipstick 500 /ul (Negative); Nitrite-Dipstick Negative (Negative); Occult Blood-Urine 25 /ul (Negative); Protein-Dipstick 30 mg/dl (Negative); Urine Bilirubin Dipstick Negative (Negative); Urine Clarity Cloudy (Clear); Urine Urobilinogen 1 mg/dl (Normal)
[2024-02-25 22:08] LABS: Bacteria 2+ /hpf (None Seen); Squamous Epithelial Cells - UA 0-5 SEEN /hpf (0-5); White Blood Cells >100 SEEN /hpf (0-5)
[2024-02-25 22:14] LABS: Reflex Lactate? Y
[2024-02-25] MEDS: Ceftriaxone 1 GM/50 ML BAG IV (22:28)
--- NOTE | 2024-02-25 22:34 | PCM.HP.STD ---
[facility] - General General Date of Admission: 02/25/24 Date of Service: 02/25/24 Chief Complaint: Dizziness and Constant Urinary Dribbling. HPI Narrative SHAHLA ROD, is a 73 M with a past medical history of essential hypertension, hyperlipidemia, ongoing tobacco abuse, obesity; with BMI of 30.3 this admission, history of atrial fibrillation; on Eliquis and metoprolol, history of CVA, history of syncope (2018), history of nephrolithiasis, BPH; on Afluzosin followed at the [facility], osteoarthritis and history of listed allergies to penicillin and sulfa agents who presents to [facility] ER complaining of dizziness and constant urinary dribbling. Mr. Kunz is a relatively poor informant with difficulty answering direct questions but he reports his symptoms began approximately 1 hour prior to arrival when he was at the gas station attempting to buy 2 packs of cigarettes and being at the counter when he had to put his head down because he began to feel lightheaded. Someone at the gas station then activated EMS after helping him up with patient feeling slightly weak. He has noticed constant urinary dribbling but he denies dysuria, hematuria or flank pain. There is no report of fever, chills, nausea, vomiting, chest pain, shortness of breath or diaphoresis but he does admit to chronic constipation and having to get up ~8 times per night to urinate. In the ER he was noted to have a urinalysis for acute cystitis; without hematuria with symptomatic hypotension in the ~80 mmHg systolic range with lactic acidosis of 3 mmol/L present on admission concerning for sepsis and he was then admitted to the ICU for ongoing care for stay that is expected to extend beyond 2 midnights. ON LICENSE OF [facility] Medical History (Updated 02/25/24 @ 23:[address] Fan Baker MD) Afib Home Medications ?Medication ?Instructions ?Recorded ?Last Taken ?Type alfuzosin 10 mg tablet,extended 10 mg PO DAILY prostate 03/02/18 Unknown History release 24 hr apixaban 5 mg tablet (Eliquis) 5 mg PO BID blood thinner 03/02/18 Unknown History lisinopril 5 mg tablet 5 mg PO DAILY blood pressure 03/02/18 Unknown History lisinopril 5 mg tablet 5 mg PO DAILY 30 days #30 tabs 03/03/18 Unknown Rx metoprolol succinate 100 mg 150 mg (1.5 x 100 mg) PO DAILY 30 03/03/18 Unknown Rx tablet,extended release 24 hr days #30 tabs Allergy/AdvReac Type Severity Reaction Status Date / Time Fish Containing Products Allergy Hives Verified 03/02/18 15:22 Penicillins (PCN) Allergy Unknown Verified 03/02/18 15:22 Sulfa (Sulfonamide Allergy Unknown Verified 03/02/18 15:22 Antibiotics) Social History Smoking Status: Current every day smoker tobacco type: cigarettes ROS ROS Narrative Review of systems: General: Patient admits to mild generalized weakness but denies fever, chills or weight loss. HENT: Denies headache, denies stuffy nose, denies sore throat EYES: Denies changes in vision or discharge from eyes. Resp: Denies cough, denies shortness of breath Cardiac: Denies chest pain, palpitations or heart racing GI: Patient admits to chronic constipation but he denies abdominal pain, denies blood in stool, denies nausea or vomiting. : Patient admits to constant urinary dribbling and routinely getting up ~8 times per night to urinate as per HPI. Extremity: Denies swelling Musculoskeletal: Feels somewhat generally weak and unwell but denies arthralgias or myalgias. Neuro: Patient denies headache, paresthesias or focal neurologic weakness. Heme: Denies any bleeding or bruising Skin: Denies rashes Psychiatric: No complaints voiced related to uncontrolled depression or anxiety. Endocrine: No polyuria, polydipsia or polyphagia. The rest of the 14 point ROS was negative except for positives in HPI. Vital Signs Vital Signs Vital Signs: 02/25/24 17:52 02/25/24 17:52 02/25/24 18:51 Temperature 97.2 F L Temperature Source Temporal Pulse Rate 82 79 Respiratory Rate 16 16 Blood Pressure 84/73 L 84/73 L 108/75 Blood Pressure Mean 76 76 86 Pulse Ox 98 98 Oxygen Delivery Method Room Air Room Air 02/25/24 19:00 02/25/24 20:00 02/25/24 21:00 Temperature Temperature Source Pulse Rate 103 H 101 H 109 H Respiratory Rate 17 13 9 L Blood Pressure 96/61 108/72 102/69 Blood Pressure Mean 72 84 80 Pulse Ox 100 98 98 Oxygen Delivery Method Room Air Room Air Room Air 02/25/24 22:00 Temperature Temperature Source Pulse Rate 92 Respiratory Rate 16 Blood Pressure 111/83 H Blood Pressure Mean 92 Pulse Ox 98 Oxygen Delivery Method Room Air Weight Weight: 229 lb 11.547 oz Body Mass Index (BMI) 30.3 Physical Exam Const alert, oriented x3, no apparent distress, average body habitus and healthy appearing General Appearance: cooperative HEENT normocephalic, head/scalp atraumatic, hearing grossly normal bilaterally and moist oral mucous membranes Eyes PERRL and EOMs intact bilaterally Neck no lymphadenopathy and supple Resp normal respiratory effort, no retractions, no use of accessory muscles and clear to auscultation bilaterally Cardio Cardio Narrative: Irregularly irregular at ~80 bpm. GI normal to inspection, nondistended, normoactive bowel sounds, soft to palpation, non-tender and non-distended Extremity normal to inspection, full ROM and no clubbing, cyanosis or edema Skin Skin Narrative: Patient has mild pallor but no signs of rash or jaundice. Neuro oriented x3, CN's II-XII intact bilaterally, moves all extremities and no focal motor deficits Sensorium / Orientation: awake, alert, oriented to person, oriented to place and oriented to time Speech: speech normal Psych affect normal Results Medical Records Data Attestation: I reviewed the patient's medical records Lab / Micro Data Attestation: I reviewed the patient's lab results. 02/25/24 18:04 02/25/24 18:04 Labs: Laboratory Results - last 24 hr 02/25/24 18:04: WBC 7.3, RBC 5.13, Hgb 14.3, Hct 44.7, MCV 87.1, MCH 27.9, MCHC 32.0, RDW Std Deviation 46.8 H, RDW Coeff of Alyse 14.6, Plt Count 176, MPV 9.8, Immature Gran % (Auto) 0.300, Neut % (Auto) 70.9 H, Lymph % (Auto) 20.4, Reynolds % (Auto) 6.4, Eos % (Auto) 1.5, Baso % (Auto) 0.5, Absolute Neuts (auto) 5.2, Absolute Lymphs (auto) 1.49, Nucleated RBC % 0, Sodium 141, Potassium 3.6, Chloride 108 H, Carbon Dioxide 26.0, Anion Gap 7, BUN 18, Creatinine 1.21, Estim Creat Clear Calc 66.87, Est GFR (MDRD) Af Amer 75, Est GFR (MDRD) Non-Af 62, BUN/Creatinine Ratio 14.9, Glucose 125 H, Lactic Acid 3.0 H*, Calcium 8.9, Total Bilirubin 0.70, AST 10 L, ALT 10 L, Alkaline Phosphatase 92, Total Protein 7.1, Albumin 3.1 L, Globulin 4.0, Albumin/Globulin Ratio 0.8 L 02/25/24 21:30: Urine Color Yellow, Urine Clarity Cloudy, Urine pH 7.0, Ur Specific [place] 1.010, Urine Protein 30 H, Urine Glucose (UA) Normal, Urine Ketones 15 H, Urine Occult Blood 25 H, Urine Nitrite Negative, Urine Bilirubin Negative, Urine Urobilinogen 1 H, Ur Leukocyte Esterase 500 H, Urine RBC 0 SEEN, Urine WBC >100 SEEN, Ur Squamous Epith Cells 0-5 SEEN, Urine Bacteria 2+, Urine Mucus 0 SEEN Micro: Microbiology 02/25/24 21:45 Stool Stool Occult Blood (HUAN) - Final Imaging Radiology Impression Chest X-Ray 02/25/24 18:15 IMPRESSION: No acute radiographic abnormalities. Electronically Signed: Boris Freeman MD at 18:40 EDT , [facility] Imaging Services [address] [place] [address] [id number] Abdomen/Pelvis without Cont MR#: [id number] Acct: [id number] Name: SHAHLA ROD Rep #: [id number] : 1950 M 73 From: Dread Adan MD PCP: [facility] Status: ADM IN Study: Abdomen/Pelvis without Cont Date of Exam: 02/25/24 Exam# [id number] Ordering Dr: Dread Melchor DO INDICATION: Severe BPH with UTI and Sepsis. Evaluate for mass EXAMINATION: CT ABDOMEN AND PELVIS WITHOUT CONTRAST - CT Abdomen And Pelvis W/O Contrast Injection TECHNIQUE: Helically acquired images were obtained of the abdomen and pelvis without oral or IV contrast. A radiation dose optimization technique was used for this scan. IV Contrast dosage and agent: None. Oral contrast: None. RADIATION DOSAGE (If Supplied By Facility): CTDIvol = ( 15.99 ) mGy, DLP = ( 934.62 ) mGycm COMPARISON: No relevant prior comparison study available FINDINGS: LOWER CHEST: Lung bases are clear. No cardiomegaly or pericardial effusion. Coronary calcifications present. LIVER: The liver is normal in size, shape, and attenuation. No focal mass. GALLBLADDER AND BILIARY TREE: The gallbladder is normally distended. No gallstones. No gallbladder wall thickening or edema. No intra- or extrahepatic biliary ductal dilation. PANCREAS: No focal cystic or solid mass. SPLEEN: Normal size without focal cystic or solid mass. ADRENAL GLANDS: No nodules. KIDNEYS AND URETERS: Normal renal size and position. There is a 7 mm nonobstructing calculus in the lower pole of left kidney. No ureteral calculi or hydronephrosis. PERITONEUM: No ascites or free air. No other fluid collection. BOWEL: The stomach is unremarkable. Normal caliber small bowel. No obstruction. No colonic wall thickening or inflammatory changes. Pancolonic diverticulosis without evidence of diverticulitis. Normal appendix. LYMPH NODES: No enlarged mesenteric or retroperitoneal lymph nodes. VESSELS: Aorta is non-dilated. URINARY BLADDER: No significant bladder wall thickening. There is a diverticulum along the dome of the bladder, and a a few smaller diverticula elsewhere. There is a 2 cm stone in the dependent bladder. REPRODUCTIVE ORGANS: No pelvic masses. The prostate is enlarged measuring up to 6 cm transversely. The median lobe protrudes into the bladder approximately 2.4 cm. Seminal vesicles unremarkable. ABDOMINAL WALL: Bilateral fat-containing indirect inguinal hernias without inflammation. BONES: No acute or suspicious osseous abnormality. CT/Abdomen/Pelvis without Cont IMPRESSION: * Nonobstructive 7 mm calculus, left kidney. * No ureteral calculus or hydronephrosis. * Cannot exclude pyelonephritis in the absence of intravenous contrast, however there is no perinephric fat stranding to suggest the diagnosis. * Prostatomegaly with median lobe protruding into the bladder base 2.4 cm. * A bladder calculus is present measuring 2.0 cm. * No unenhanced CT imaging evidence of cystitis. * Pancolonic diverticulosis without evidence of diverticulitis. Electronically Signed: Dread Adan MD at 1:19 EDT , CC: Dr. Dread Melchor DO; [facility] ~ Assistant Community Director: Signed Assessment & Plan Assessment/Plan (1) Sepsis: QUALIFIERS: Sepsis acute organ dysfunction status: without acute organ dysfunction Sepsis type: sepsis due to unspecified organism Qualified Code(s): A41.9 - Sepsis, unspecified organism (2) Acute cystitis without hematuria: (3) Near syncope: (4) BPH (benign prostatic hyperplasia): QUALIFIERS: Lower urinary tract symptom presence: unspecified whether lower urinary tract symptoms present Qualified Code(s): N40.0 - Benign prostatic hyperplasia without lower urinary tract symptoms (5) Tobacco abuse: (6) HLD (hyperlipidemia): QUALIFIERS: Hyperlipidemia type: unspecified Qualified Code(s): E78.5 - Hyperlipidemia, unspecified (7) HTN (hypertension): QUALIFIERS: Hypertension type: unspecified Qualified Code(s): I10 - Essential (primary) hypertension (8) History of CVA (cerebrovascular accident): (9) Chronic atrial fibrillation: PLAN: Plan 1. Acute cystitis; without hematuria complicated by clinical signs of sepsis with symptomatic hypotension of ~80 mmHg causing near syncope and lactic acidosis of 3 mmol/L present on admission - Admit to ICU for treatment under the sepsis protocol. Continue empiric IV Levaquin given patient's allergy profile with listed allergies to penicillin and sulfa agents and await culture and sensitivity data. Give Tylenol as needed pain or fever. 2. History of BPH; on Afluosin with patient routinely getting up ~8 times per night to urinate plus signs of overflow incontinence complicating #1 - Stable. Checked PSA screen which was highly elevated at 12.4 ng/mL. Checked CT scan of the abdomen and pelvis to evaluate for possible mass. Patient should be considered to be set up with outpatient urology follow up for biopsy at time of discharge. 3. Chronic Constipation compounding #1 & #2 - Give Miralax 17g daily plus one dose of lactulose to relieve constipation. 4. History of syncope (2018) - Noted. 5. Essential hypertension - Hold scheduled antihypertensives until infection outlined #1 is neutralized. 6. Ongoing tobacco abuse - Tobacco cessation will be strongly encouraged with nicotine patch offered to control cravings. 7. Hyperlipidemia - Check lipid profile with patient currently not on therapy. 8. Obesity; with BMI of 30.3 this admission - Weight loss will be recommended. Check TSH. 9. History of atrial fibrillation; on Eliquis and metoprolol - Resume Eliquis but hold metoprolol. 10. History of CVA - Noted. 11. History of nephrolithiasis - Noted. 12. Osteoarthritis - Give Tylenol prn. 13. DVT prophylaxis - Patient is on chronic Eliquis for #8 which will be continued. Total time: Approximately 75 minutes. Sepsis Attestation Sepsis Alert: Yes Sepsis Attestation: Agree w/Sepsis Date exam was performed: 02/25/24 Time exam was performed: 23:05 Possible Source of Sepsis: Genitourinary Sepsis Organ Dysfunction Criteria Present: SBP < 90 mmHg or MAP < 65 mmHg and Lactic Acid > 2 mmol/L Fluid Resuscitation Fluid resuscitation indicated?: Yes Fluid Resuscitation ordered: 30 ml/kg fluid bolus ordered Amount of fluid ordered: 3 Sepsis Note Date exam was performed: 02/26/24 Time exam was performed: 03:05 Sepsis Attestation: Sepsis re-evaluation was performed Response to fluids: Fluid responsive hypotension Charges/Coding Visit Charges Inpatient E&M: 38177 Init Hosp L3
[2024-02-25 22:53] LABS: Lactic Acid 1.6 mmol/L (0.4-1.9)
[2024-02-25] MEDS: levoFLOXacin IV 750 MG/150 ML BAG 100 MG IV (23:02)
--- NOTE | 2024-02-25 23:27 | CT_ITS ---
INDICATION: Severe BPH with UTI and Sepsis. Evaluate for mass EXAMINATION: CT ABDOMEN AND PELVIS WITHOUT CONTRAST - CT Abdomen And Pelvis W/O Contrast Injection TECHNIQUE: Helically acquired images were obtained of the abdomen and pelvis without oral or IV contrast. A radiation dose optimization technique was used for this scan. IV Contrast dosage and agent: None. Oral contrast: None. RADIATION DOSAGE (If Supplied By Facility): CTDIvol = ( 15.99 ) mGy, DLP = ( 934.62 ) mGycm COMPARISON: No relevant prior comparison study available FINDINGS: LOWER CHEST: Lung bases are clear. No cardiomegaly or pericardial effusion. Coronary calcifications present. LIVER: The liver is normal in size, shape, and attenuation. No focal mass. GALLBLADDER AND BILIARY TREE: The gallbladder is normally distended. No gallstones. No gallbladder wall thickening or edema. No intra- or extrahepatic biliary ductal dilation. PANCREAS: No focal cystic or solid mass. SPLEEN: Normal size without focal cystic or solid mass. ADRENAL GLANDS: No nodules. KIDNEYS AND URETERS: Normal renal size and position. There is a 7 mm nonobstructing calculus in the lower pole of left kidney. No ureteral calculi or hydronephrosis. PERITONEUM: No ascites or free air. No other fluid collection. BOWEL: The stomach is unremarkable. Normal caliber small bowel. No obstruction. No colonic wall thickening or inflammatory changes. Pancolonic diverticulosis without evidence of diverticulitis. Normal appendix. LYMPH NODES: No enlarged mesenteric or retroperitoneal lymph nodes. VESSELS: Aorta is non-dilated. URINARY BLADDER: No significant bladder wall thickening. There is a diverticulum along the dome of the bladder, and a a few smaller diverticula elsewhere. There is a 2 cm stone in the dependent bladder. REPRODUCTIVE ORGANS: No pelvic masses. The prostate is enlarged measuring up to 6 cm transversely. The median lobe protrudes into the bladder approximately 2.4 cm. Seminal vesicles unremarkable. ABDOMINAL WALL: Bilateral fat-containing indirect inguinal hernias without inflammation. BONES: No acute or suspicious osseous abnormality. CT/Abdomen/Pelvis without Cont IMPRESSION: * Nonobstructive 7 mm calculus, left kidney. * No ureteral calculus or hydronephrosis. * Cannot exclude pyelonephritis in the absence of intravenous contrast, however there is no perinephric fat stranding to suggest the diagnosis. * Prostatomegaly with median lobe protruding into the bladder base 2.4 cm. * A bladder calculus is present measuring 2.0 cm. * No unenhanced CT imaging evidence of cystitis. * Pancolonic diverticulosis without evidence of diverticulitis. Electronically Signed: Dread Adan MD at 1:19 EDT ,
[2024-02-25 23:41] LABS: Thyroid Stim Hormone (TSH) 2.01 uIU/mL (0.358-3.74)
[2024-02-26] VITALS (16 sets, daily range): BP systolic 95–136; BP diastolic 60–98; PULSE 56–96; RESP 16–18; TEMP 36.4–37.1; O2SAT 95–100; BMI 30.4
[2024-02-26] MEDS: APIXABAN 5 MG TABLET PO ×3 (00:06→21:46)
[2024-02-26 00:24] LABS: Cholesterol 76 mg/dL (200); High Density Lipoprotein 26 mg/dL; Triglycerides 109 mg/dL; Very Low Density Lipoprotein 22 mg/dL (5-40)
[2024-02-26] MEDS: Lactulose 20 GM/30 ML UDC 30 GM PO (01:30)
--- NOTE | 2024-02-26 07:11 | PN.HOSP_ITS ---
Reason for Visit Reason for Visit: Diagnoses Sepsis, unspecified organism (02/25/24) Hyperlipidemia, unspecified (02/25/24) Essential (primary) hypertension (02/25/24) Chronic atrial fibrillation, unspecified (02/25/24) Acute cystitis without hematuria (02/25/24) Benign prostatic hyperplasia without lower urinary tract symptoms (02/25/24) Syncope and collapse (02/25/24) Tobacco use (02/25/24) Personal history of transient ischemic attack (TIA), and cerebral infarction without residual deficits (02/25/24) Subjective Subjective Patient is a 73-year-old gentleman who presented with near syncopal episode. An assessment of sepsis secondary to acute cystitis with hematuria made admitted to the intensive care unit for further management Objective Data Objective Data Vital Signs: Vital Signs Temp Pulse Resp BP Pulse Ox O2 Del Method 98.1 F 81 16 120/83 H 96 Room Air 02/26/24 07:00 02/26/24 07:00 02/26/24 07:00 02/26/24 07:00 02/26/24 07:00 02/26/24 07:00 Oxygen Delivery Method Room Air Weight: 104.9 kg Body Mass Index (BMI) 30.4 Intake & Output: Intake and Output for Last 24 Hours 02/24/24 02/25/24 02/26/24 23:59 23:59 23:59 Intake Total 2049 / 2049 1350 / 1350 Output Total 0 / 0 340 / 340 Balance 2049 / 2049 1010 / 1010 Lab / Micro Data 02/25/24 18:04 02/25/24 18:04 Labs: Laboratory Results - last 24 hr 02/25/24 18:04: WBC 7.3, RBC 5.13, Hgb 14.3, Hct 44.7, MCV 87.1, MCH 27.9, MCHC 32.0, RDW Std Deviation 46.8 H, RDW Coeff of Alyse 14.6, Plt Count 176, MPV 9.8, Immature Gran % (Auto) 0.300, Neut % (Auto) 70.9 H, Lymph % (Auto) 20.4, [place] % (Auto) 6.4, Eos % (Auto) 1.5, Baso % (Auto) 0.5, Absolute Neuts (auto) 5.2, Absolute Lymphs (auto) 1.49, Nucleated RBC % 0, Sodium 141, Potassium 3.6, C hloride 108 H, Carbon Dioxide 26.0, Anion Gap 7, BUN 18, Creatinine 1.21, Estim Creat Clear Calc 66.87, Est GFR (MDRD) Af Amer 75, Est GFR (MDRD) Non-Af 62, BUN/Creatinine Ratio 14.9, Glucose 125 H, Lactic Acid 3.0 H*, Calcium 8.9, Total Bilirubin 0.70, AST 10 L, ALT 10 L, Alkaline Phosphatase 92, Total Protein 7.1, Albumin 3.1 L, Globulin 4.0, Albumin/Globulin Ratio 0.8 L, Triglycerides 109, Cholesterol 76, LDL Cholesterol 28, VLDL Cholesterol 22, HDL Cholesterol 26 L, P SA Screen 12.40 H, TSH 2.01 02/25/24 21:30: Urine Color Yellow, Urine Clarity Cloudy, Urine pH 7.0, Ur Specific [place] 1.010, Urine Protein 30 H, Urine Glucose (UA) Normal, Urine Ketones 15 H, Urine Occult Blood 25 H, Urine Nitrite Negative, Urine Bilirubin Negative, Urine Urobilinogen 1 H, Ur Leukocyte Esterase 500 H, Urine RBC 0 SEEN, Urine WBC >100 SEEN, Ur Squamous Epith Cells 0-5 SEEN, Urine Bacteria 2+, Urine Mucus 0 SEEN 02/25/24 22:21: Lactic Acid 1.6 Micro: Microbiology 02/25/24 21:45 Stool Stool Occult Blood (HUAN) - Final Radiography Diagnostic Testing: Radiology Impression Chest X-Ray 02/25/24 18:15 IMPRESSION: No acute radiographic abnormalities. Electronically Signed: Boris Freeman MD at 18:40 EDT , Abdomen/Pelvis CT 02/25/24 23:27 IMPRESSION: * Nonobstructive 7 mm calculus, left kidney. * No ureteral calculus or hydronephrosis. * Cannot exclude pyelonephritis in the absence of intravenous contrast, however there is no perinephric fat stranding to suggest the diagnosis. * Prostatomegaly with median lobe protruding into the bladder base 2.4 cm. * A bladder calculus is present measuring 2.0 cm. * No unenhanced CT imaging evidence of cystitis. * Pancolonic diverticulosis without evidence of diverticulitis. Electronically Signed: Dread Adan MD at 1:19 EDT Reading Location ID and State: [id number] [facility] Tel , Service support , Physical Exam Narrative GENERAL: cooperative HEENT: Atraumatic; normocephalic EYES; Anicteric, Normal Conjunctiva NECK; supple, normal thyroid, RESPIRATORY: Diminished to auscultation CARDIOVASCULAR: Regular S1 S2, GI: soft, normoactive bowel sounds, : No Renal angle tenderness; EXTREMITIES: No edema, no clubbing, MUSCULOSKELETAL: no muscle wasting NEURO: Awake; no lateralizing signs. SKIN: No Rash PSYCH; Flat affect Cardio Cardio Narrative: Irregularly irregular at ~80 bpm. Skin Skin Narrative: Patient has mild pallor but no signs of rash or jaundice. Assessment & Plan Assessment/Plan (1) Sepsis: QUALIFIERS: Sepsis acute organ dysfunction status: without acute organ dysfunction Sepsis type: sepsis due to unspecified organism Qualified Code(s): A41.9 - Sepsis, unspecified organism (2) Acute cystitis without hematuria: PLAN: Plan Patient is a 73-year-old gentleman who presented with near syncopal episode. An assessment of sepsis secondary to acute cystitis with hematuria made admitted to the intensive care unit for further management 1. Severe sepsis ? Secondary to acute cystitis patient had hypotension as well as lactic acidosis patient responded to the initial IV fluid bolus. Patient was started on broad- spectrum antibiotic therapy with Levaquin pending culture result 2. BPH ? Symptoms controlled on alfuzosin 3. Essential hypertension ? Patient antihypertensives held on admission 4. Paroxysmal A-fib ? Rate controlled on metoprolol patient is on systemic anticoagulation with apixaban continue 5. Tobacco dependence - Counseled on cessation, offered nicotine patch for tobacco cravings 6. DVT prophylaxis ? Patient is on apixaban Time spent in the patient's overall evaluation,decision-making process, review of diagnostic data, adjustment of management, discussion with other providers, nursing nursing and ancillary staff involved in patient's care documentation, 50 Minutes Charges/Coding Visit Charges Inpatient E&M: 43692 [facility] L3
[2024-02-26] MEDS: Ascorbic Acid 500 MG Tablet 1000 MG PO ×2 (07:50→16:42)
[2024-02-26] MEDS: Tamsulosin HCl 0.4 MG Capsule PO (07:51)
[2024-02-26] MEDS: Zinc Sulfate 50 mg zinc (220 mg) ORAL capsule PO (07:51)
[2024-02-26] MEDS: Lactobacillis Acidophilus 2 CAP PO ×2 (07:51→21:47)
[2024-02-26] MEDS: Cholecalciferol (Vit D3) 125 MCG CAPSULE (5,000 UNITS) PO (07:52)
[2024-02-26] MEDS: Polyethylene Glycol 3350 17 GM PACKET PO (07:52)
[2024-02-26] MEDS: Metoprolol Tartrate 25 MG Tablet PO (08:33)
--- NOTE | 2024-02-26 11:00 | CASEMGMT ---
RN CM Face to Face with patient for initial transition planning/care coordination assessment. RN CM introduced self and role at [facility]. Patient sitting in chair, alert and oriented. Patient willing to participate in assessment and is able to answer all questions appropriately. Care providers, pharmacy, and demographics verified. PCP: Ronald SANDHU Specialists: [employer] Technician, PHOEBE [facility] [place] [place]: [place], [facility] Prescription Benefit: [place] Living Will/HPOA: none LNOK: brother Living Arrangements: Patient lives with brother in a mobile home with 7 steps and railing to enter the home. Patient states he is independent at home. Transportation: self, brother DME/HHC: Patient states he has walker at home. No previous HHC or SNF. Patient voiced interest in [facility], SW notified. Patient wishes to discharge home, denies need for home health at this time. Patient states he has no further needs or concerns at this time. CM to follow for discharge planning needs that may arise. Disposition Plan: Patient to discharge home with family support and follow-up plans in place. Connie DICKSON, RN, CM
--- NOTE | 2024-02-26 11:48 | CASEMGMT ---
Social Work Referral made online to [facility] [facility] for pt. TRE Su
[2024-02-26] MEDS: 0.9% Normal Saline (250mL Bag) 250 ML 15 ML IV (21:46)
[2024-02-26] MEDS: levoFLOXacin IV 750 MG/150 ML BAG 100 MG IV (21:47)
[2024-02-27 03:33] VITALS: BP 121/84; PULSE 80; RESP 16; TEMP 36.9; O2SAT 99
[2024-02-27 05:21] LABS: Absolute Lymphocyte Count 1.26 X10^3/uL (0.83-4.51); Absolute Neutrophil Count 4.5 X10^3/uL (2.0-7.7); Basophil# 0.03 X10^3/uL; Basophil% 0.5 % (0-1); Eosinophils% 1.6 % (0-5); Hematocrit 39.8 % (40-54); Hemoglobin 12.7 g/dL (13.0-16.5); Lymphocyte # 1.26 X10^3/ul (0.83-4.51); Lymphocyte % 19.9 % (19-41); Mean Corp Hgb Conc 31.9 g/dL (32-36); Mean Corpuscular Hgb 27.9 pg (27.0-32.0); Mean Corpuscular Volume 87.3 fL (80-94); Mean Platelet Vol. 10.2 fl (6.2-12.0); Monocyte# 0.44 X10^3/uL; NRBC Flagged by Analyzer 0 % (0-5); Neutrophil # 4.49 X10^3/uL (2.7-7.7); Neutrophil % 70.8 % (47-70); Platelet Count 157 K/mm3 (150-450); RBC Distribution Width CV 14.8 % (11.6-14.6); RBC Distribution Width SD 47.6 fl (35.1-43.9); Red Blood Count 4.56 M/mm3 (4.6-6.2); White Blood Count 6.3 K/mm3 (4.4-11.0)
[2024-02-27 05:54] LABS: Anion Gap 2 (5-15); BUN 14 mg/dL (7-18); BUN/Creat Ratio 17.7 RATIO (10-20); Calcium,Total 8.4 mg/dL (8.5-10.1); Chloride 114 mmol/L (98-107); Creatinine, Serum 0.79 mg/dL (0.70-1.30); EST Glomerular Filtration Rate 102 mL/min (>60); Est Glom Filt Rate - Afr Amer 123 mL/min (>60); Estimated Creatinine Clearance 101.45 ml/min; Glucose 90 mg/dL (74-106); Magnesium 1.9 mg/dL (1.6-2.6); Phosphorus 2.8 mg/dL (2.5-4.9); Potassium 3.7 mmol/L (3.5-5.1); Sodium Level 140 mmol/L (136-145)
[2024-02-27 06:12] VITALS: BMI 30.7
--- NOTE | 2024-02-27 07:24 | PCM.PN.HOSP ---
Reason for Visit Reason for Visit: Diagnoses Sepsis, unspecified organism (02/25/24) Hyperlipidemia, unspecified (02/25/24) Essential (primary) hypertension (02/25/24) Chronic atrial fibrillation, unspecified (02/25/24) Acute cystitis without hematuria (02/25/24) Benign prostatic hyperplasia without lower urinary tract symptoms (02/25/24) Syncope and collapse (02/25/24) Tobacco use (02/25/24) Personal history of transient ischemic attack (TIA), and cerebral infarction without residual deficits (02/25/24) Subjective Subjective Patient admitted with acute cystitis with sepsis transferred to regular nursing floor from the ICU the day prior. Cultures still remain negative to date. Patient is however afebrile with normal WBC count Objective Data Objective Data Vital Signs: Vital Signs Temp Pulse Resp BP Pulse Ox O2 Del Method 98.4 F 80 16 121/84 H 99 Room Air 02/27/24 03:33 02/27/24 03:33 02/27/24 03:33 02/27/24 03:33 02/27/24 03:33 02/27/24 03:33 Oxygen Delivery Method Room Air Weight: 104.9 kg Body Mass Index (BMI) 30.7 Intake & Output: Intake and Output for Last 24 Hours 02/25/24 02/26/24 02/27/24 23:59 23:59 23:59 Intake Total 2049 / 2049 1564 / 1564 700 / 700 Output Total 0 / 0 340 / 340 1100 / 1100 Balance 2049 / 2049 1224 / 1224 -400 / -400 Lab / Micro Data 02/27/24 04:53 02/27/24 04:53 Labs: Laboratory Results - last 24 hr 02/27/24 04:53: WBC 6.3, RBC 4.56 L, Hgb 12.7 L, Hct 39.8 L, MCV 87.3, MCH 27.9, MCHC 31.9 L, RDW Std Deviation 47.6 H, RDW Coeff of Alyse 14.8 H, Plt Count 157, MPV 10.2, Immature Gran % (Auto) 0.200, Neut % (Auto) 70.8 H, Lymph % (Auto) 19.9, [place] % (Auto) 7.0, Eos % (Auto) 1.6, Baso % (Auto) 0.5, Absolute Neuts (auto) 4.5, Absolute Lymphs (auto) 1.26, Nucleated RBC % 0, Sodium 140, Potassium 3.7, Chloride 114 H, Carbon Dioxide 24.0, Anion Gap 2 L, BUN 14, Creatinine 0.79, Estim Creat Clear Calc 101.45, Est GFR (MDRD) Af Amer 123, Est GFR (MDRD) Non-Af 102, BUN/Creatinine Ratio 17.7, Glucose 90, Calcium 8.4 L, Phosphorus 2.8, Magnesium 1.9 Micro: Microbiology 02/25/24 21:45 Stool Stool Occult Blood (HUAN) - Final Physical Exam Narrative GENERAL: cooperative HEENT: Atraumatic; normocephalic EYES; Anicteric, Normal Conjunctiva NECK; supple, normal thyroid, RESPIRATORY: Diminished to auscultation CARDIOVASCULAR: Regular S1 S2, GI: soft, normoactive bowel sounds, : No Renal angle tenderness; EXTREMITIES: No edema, no clubbing, MUSCULOSKELETAL: no muscle wasting NEURO: Awake; no lateralizing signs. SKIN: No Rash PSYCH; Flat affect Assessment & Plan Assessment/Plan (1) Sepsis: QUALIFIERS: Sepsis acute organ dysfunction status: without acute organ dysfunction Sepsis type: sepsis due to unspecified organism Qualified Code(s): A41.9 - Sepsis, unspecified organism (2) Acute cystitis without hematuria: PLAN: Plan Patient is a 73-year-old gentleman who presented with near syncopal episode. An assessment of sepsis secondary to acute cystitis with hematuria made admitted to the intensive care unit for further management 1. Severe sepsis ? Secondary to acute cystitis patient had hypotension as well as lactic acidosis patient responded to the initial IV fluid bolus. Patient was started on broad-spectrum antibiotic therapy with Levaquin pending culture result ? 02/27/2024; transferred to regular nursing floor from the ICU the day prior. Cultures still remain negative to date. Patient is however afebrile with normal WBC count 2. BPH ? Symptoms controlled on alfuzosin 3. Essential hypertension ? Patient antihypertensives held on admission 4. Paroxysmal A-fib ? Rate controlled on metoprolol patient is on systemic anticoagulation with apixaban continue 5. Tobacco dependence - Counseled on cessation, offered nicotine patch for tobacco cravings 6. DVT prophylaxis ? Patient is on apixaban Time spent in the patient's overall evaluation,decision-making process, review of diagnostic data, adjustment of management, discussion with other providers, nursing nursing and ancillary staff involved in patient's care documentation, 35 Minutes Advance planning; did discuss with the patient and family regarding advanced directives as well as CODE STATUS. Did explain the various scenarios involved ( FULL CODE, DNR CCA, DNR CCA with no intubation, and DNR CC and what each meant) patient elected to remain full code with CPR and intubation if needed. Order was placed. Time spent on discussion 16 minutes. Charges/Coding Visit Charges Inpatient E&M: 91724 Subs Hosp L2 Procedures Hospitalists Procedures: 33652 Advncd Care Plan 30 Min
[2024-02-27] MEDS: Ascorbic Acid 500 MG Tablet 1000 MG PO ×2 (08:04→18:00)
[2024-02-27 09:33] VITALS: BP 104/80; PULSE 96; RESP 20; TEMP 36.8; O2SAT 99
[2024-02-27] MEDS: Lactobacillis Acidophilus 2 CAP PO ×2 (09:36→20:48)
[2024-02-27] MEDS: APIXABAN 5 MG TABLET PO ×2 (09:37→20:49)
[2024-02-27] MEDS: Tamsulosin HCl 0.4 MG Capsule PO (09:37)
[2024-02-27] MEDS: Cholecalciferol (Vit D3) 125 MCG CAPSULE (5,000 UNITS) PO (09:37)
[2024-02-27] MEDS: Zinc Sulfate 50 mg zinc (220 mg) ORAL capsule PO (09:37)
[2024-02-27 09:40] VITALS: PULSE 96
[2024-02-27] MEDS: Metoprolol Tartrate 25 MG Tablet PO ×2 (09:40→20:53)
[2024-02-27 14:16] VITALS: BP 93/68; PULSE 90; RESP 18; TEMP 36.7; O2SAT 98
--- NOTE | 2024-02-27 16:12 | CON.PCM.GI_ITS ---
HPI Consult Data Date of Consult: 02/27/24 HPI Narrative Reason for Consultation: Lower GI bleeding HPI Narrative: SHAHLA ROD, is a 73 M who presented dizziness and weakness. He has a pmh of essential hypertension, hyperlipidemia, ongoing tobacco abuse, obesity, cva and history of nephrolithiasis. He is a poor historian. In the ER he was noted to have a urinalysis for acute cystitis; without hematuria with symptomatic hypotension in the ~80 mmHg systolic range with lactic acidosis of 3 mmol/L present on admission concerning for sepsis. He also does admits to chronic constipation. I was asked to see him for lower GI bleeding. Patient says that the only reason that he had lower GI bleeding was because he had some popcorn. He did have a CT scan abdomen pelvis that showed pandiverticular disease. His hemoglobin decreased from 14.5-12.7. [facility] Medical History (Updated 02/27/24 @ 16:[address] Jorge Combs, ) Afib Home Medications ?Medication ?Instructions ?Recorded ?Last Taken ?Type alfuzosin 10 mg tablet,extended 10 mg PO DAILY prostate 03/02/18 Unknown History release 24 hr apixaban 5 mg tablet (Eliquis) 5 mg PO BID blood thinner 03/02/18 Unknown History lisinopril 5 mg tablet 5 mg PO DAILY blood pressure 03/02/18 Unknown History lisinopril 5 mg tablet 5 mg PO DAILY 30 days #30 tabs 03/03/18 Unknown Rx metoprolol succinate 100 mg 150 mg (1.5 x 100 mg) PO DAILY 30 03/03/18 Unknown Rx tablet,extended release 24 hr days #30 tabs Allergy/AdvReac Type Severity Reaction Status Date / Time Fish Containing Products Allergy Hives Verified 03/02/18 15:22 Penicillins (PCN) Allergy Unknown Verified 03/02/18 15:22 Sulfa (Sulfonamide Allergy Unknown Verified 03/02/18 15:22 Antibiotics) Social History Smoking Status: Current every day smoker tobacco type: cigarettes ROS ROS Narrative Review of systems: General: Patient admits to mild generalized weakness but denies fever, chills or weight loss. HENT: Denies headache, denies stuffy nose, denies sore throat EYES: Denies changes in vision or discharge from eyes. Resp: Denies cough, denies shortness of breath Cardiac: Denies chest pain, palpitations or heart racing GI: Patient admits to chronic constipation but he denies abdominal pain, denies blood in stool, denies nausea or vomiting. : Patient admits to constant urinary dribbling and routinely getting up ~8 times per night to urinate as per HPI. Extremity: Denies swelling Musculoskeletal: Feels somewhat generally weak and unwell but denies arthralgias or myalgias. Neuro: Patient denies headache, paresthesias or focal neurologic weakness. Heme: Denies any bleeding or bruising Skin: Denies rashes Psychiatric: No complaints voiced related to uncontrolled depression or anxiety. Endocrine: No polyuria, polydipsia or polyphagia. The rest of the 14 point ROS was negative except for positives in HPI. Physical Exam Narrative GENERAL: cooperative HEENT: Atraumatic; normocephalic EYES; Anicteric, Normal Conjunctiva NECK; supple, normal thyroid, RESPIRATORY: Diminished to auscultation CARDIOVASCULAR: Regular S1 S2, GI: soft, normoactive bowel sounds, : No Renal angle tenderness; EXTREMITIES: No edema, no clubbing, MUSCULOSKELETAL: no muscle wasting NEURO: Awake; no lateralizing signs. SKIN: No Rash PSYCH; Flat affect Lab / Micro Data 02/27/24 04:53 02/27/24 04:53 Labs: Laboratory Results - last 24 hr 02/27/24 04:53: WBC 6.3, RBC 4.56 L, Hgb 12.7 L, Hct 39.8 L, MCV 87.3, MCH 27.9, MCHC 31.9 L, RDW Std Deviation 47.6 H, RDW Coeff of Alyse 14.8 H, Plt Count 157, MPV 10.2, Immature Gran % (Auto) 0.200, Neut % (Auto) 70.8 H, Lymph % (Auto) 19.9, [place] % (Auto) 7.0, Eos % (Auto) 1.6, Baso % (Auto) 0.5, Absolute Neuts (auto) 4.5, Absolute Lymphs (auto) 1.26, Nucleated RBC % 0, Sodium 140, Potassium 3.7, Chloride 114 H, Carbon Dioxide 24.0, Anion Gap 2 L, BUN 14, Creatinine 0.79, Estim Creat Clear Calc 101.45, Est GFR (MDRD) Af Amer 123, Est GFR (MDRD) Non-Af 102, BUN/Creatinine Ratio 17.7, Glucose 90, Calcium 8.4 L, Phosphorus 2.8, Magnesium 1.9 Micro: Microbiology 02/25/24 21:30 Urine, Clean Catch Urine Culture - Preliminary Gram Positive Cocci Assessment & Plan Assessment/Plan (1) Lower GI bleed: PLAN: Plan 73-year-old gentleman diagnosed with urosepsis, nephrolithiasis, BPH who developed lower GI bleeding with a history of diverticular disease. He did not allow physical examination to see if he does have hemorrhoidal disease. Differential diagnosis for lower GI bleeding would be helpful disease, diverticular disease, anal fissure, neoplasia. I encouraged him because his hemoglobin did drop from 14.5-12.7 and he has to take Eliquis because this atrial fibrillation that he should undergo colonoscopy. However he does not want to have the procedure at this time. Recommend to continue following his hemoglobin. If his hemoglobin continues to drop then he may change his mind. For now I will keep following as he does not want a colonoscopy at this time. Charges/Coding Visit Charges Inpatient E&M: 28400 Init Hosp L3
[2024-02-27 20:45] VITALS: BP 110/89; PULSE 96; RESP 16; TEMP 36.8; O2SAT 96
[2024-02-27] MEDS: levoFLOXacin IV 750 MG/150 ML BAG 100 MG IV (20:49)
[2024-02-27 20:53] VITALS: PULSE 96
[2024-02-28 04:34] VITALS: BMI 27.4
[2024-02-28 06:07] LABS: Absolute Lymphocyte Count 1.77 X10^3/uL (0.83-4.51); Absolute Neutrophil Count 5.6 X10^3/uL (2.0-7.7); Basophil# 0.04 X10^3/uL; Basophil% 0.5 % (0-1); Eosinophil# 0.16 X10^3/uL; Hematocrit 47.9 % (40-54); Hemoglobin 14.9 g/dL (13.0-16.5); Lymphocyte # 1.77 X10^3/ul (0.83-4.51); Lymphocyte % 21.7 % (19-41); Mean Corp Hgb Conc 31.1 g/dL (32-36); Mean Corpuscular Hgb 27.9 pg (27.0-32.0); Mean Corpuscular Volume 89.5 fL (80-94); Mean Platelet Vol. 10.3 fl (6.2-12.0); Monocyte# 0.57 X10^3/uL; NRBC Flagged by Analyzer 0 % (0-5); Neutrophil # 5.58 X10^3/uL (2.7-7.7); Neutrophil % 68.6 % (47-70); Platelet Count 184 K/mm3 (150-450); Red Blood Count 5.35 M/mm3 (4.6-6.2); White Blood Count 8.1 K/mm3 (4.4-11.0)
[2024-02-28 06:47] LABS: Anion Gap 5 (5-15); BUN 11 mg/dL (7-18); BUN/Creat Ratio 12.2 RATIO (10-20); Calcium,Total 9.4 mg/dL (8.5-10.1); Chloride 112 mmol/L (98-107); EST Glomerular Filtration Rate 87 mL/min (>60); Est Glom Filt Rate - Afr Amer 106 mL/min (>60); Estimated Creatinine Clearance 80.15 ml/min; Glucose 85 mg/dL (74-106); Potassium 3.7 mmol/L (3.5-5.1); Sodium Level 140 mmol/L (136-145)
[2024-02-28 06:51] VITALS: BP 124/83; PULSE 83; RESP 16; TEMP 36.7; O2SAT 98
[2024-02-28] MEDS: Cholecalciferol (Vit D3) 125 MCG CAPSULE (5,000 UNITS) PO (09:48)
[2024-02-28] MEDS: Lactobacillis Acidophilus 2 CAP PO (09:48)
[2024-02-28] MEDS: Tamsulosin HCl 0.4 MG Capsule PO (09:48)
[2024-02-28] MEDS: APIXABAN 5 MG TABLET PO (09:48)
[2024-02-28] MEDS: Ascorbic Acid 500 MG Tablet 1000 MG PO (09:48)
[2024-02-28] MEDS: Zinc Sulfate 50 mg zinc (220 mg) ORAL capsule PO (09:48)
[2024-02-28 09:51] VITALS: PULSE 99
[2024-02-28] MEDS: Metoprolol Tartrate 25 MG Tablet PO (09:51)
[2024-02-28 12:51] VITALS: BP 122/84; PULSE 99; RESP 18; TEMP 36.7; O2SAT 99
[2024-02-28 14:20] VITALS: BP 128/82; PULSE 88; RESP 16; TEMP 36.7; O2SAT 99
--- NOTE | 2024-02-28 14:23 | DCINST_ITS ---
Discharge Instructions Diet Discharge Diet: Low fat / Low cholesterol Activity Discharge Activity: Return to Normal Activity Weight Bearing Status: Weight bearing as tolerated Dressing / Incision Call your doctor if you observe: Fever of 101 or Higher, Shortness of breath, Dizziness, Swelling in the ankles and Chest pain Follow Up Care Test Results: Test results from this visit will be discussed in further detail at your follow- up appointment, if applicable. Discharge Plan Admission Admit Date/Time: 02/25/24 22:56 Primary Reason for Your Visit: sepsis due to UTI Attending Provider: Sophie Tompkins Primary Care Provider: [facility] Consulting Providers: Dread Melchor; Jorge Combs; Dread Prajapati Instructions Patient Instructions: ED Bladder Infection, Male (Adult) Discharge Orders/Prescriptions Prescriptions: New levofloxacin 750 mg tablet 750 mg PO DAILY Qty: 5 0RF Continued lisinopril 5 MG tablet 5 mg PO DAILY alfuzosin 10 MG tablet extended release 24 hr 10 mg PO DAILY Eliquis 5 MG tablet 5 mg PO BID metoprolol succinate 100 MG tablet 150 mg PO DAILY 30 Days Qty: 30 3RF lisinopril 5 MG tablet 5 mg PO DAILY 30 Days Qty: 30 6RF Referrals / Follow Up: [facility] [Primary Care Provider] - Within 1 Week Jorge Combs DO [Med Staff - Active Staff] - Within 2 Weeks Disposition Disposition (needs filled in before D/C Order can be placed): Home, Self Care
--- NOTE | 2024-02-28 14:24 | DS.PCM_ITS ---
Providers Date of Admission: 02/25/24 Date of Discharge: 02/28/24 Primary Care Physician: [facility] Consultations 02/27/24 10:33 Consult: Gastroenterology Routine Consulting Provider: FriendJorge Reason for Consult: bright red blood per rectum/rectal bleeding EMERGENT Consult: No MD Notified: Yes Date Notified: 02/27/24 Time Notified: 10:34 Method of Notification: Text Reason For Visit: ACUTE CYSTITIS; WITHOUT HEMATURIA AND SEPSIS Diagnosis Discharge Diagnosis (1) Lower GI bleed: Status: Acute Code(s): K92.2 - Gastrointestinal hemorrhage, unspecified Medications at Discharge Home Medications alfuzosin 10 mg tablet,extended release 24 hr 10 mg PO DAILY prostate 03/02/18 apixaban 5 mg tablet (Eliquis) 5 mg PO BID blood thinner 03/02/18 lisinopril 5 mg tablet 5 mg PO DAILY blood pressure 03/02/18 lisinopril 5 mg tablet 5 mg PO DAILY 30 days #30 tabs 03/03/18 metoprolol succinate 100 mg tablet,extended release 24 hr 150 mg (1.5 x 100 mg) PO DAILY 30 days #30 tabs 03/03/18 levofloxacin 750 mg tablet 750 mg PO DAILY #5 tabs 02/28/24 Hospital Course Operations None Procedures None Summary of Care Provided Minutes Spent on Discharge: 52 Hospital Course: Patient is a 73-year-old male with a past medical history as outlined was admitted through the ED on 02/25/2024 with a complaint of dizziness and urinary dribbling. His symptoms started an hour before admission. He said he was at the gas station attempting to buy some cigarettes and started to feel lightheaded and dizzy. The EMS was called. He said he notices that he was having constant urinary dribbling but denied any shortness of breath, hematuria or any other symptoms. He denied fever or chills, nausea or vomiting and did admit to frequency of urination especially at night. Urinalysis showed evidence of UTI. Was initially hypotensive though this resolved with IV fluid administration. Lactic acid was also elevated. He was initially admitted to the ICU due to concern for severe sepsis. He was started on IV Levaquin. His symptoms improved and he was transferred out of the ICU. Blood cultures were negative. URine culture grew gram positive cocci, speciation still pending at time of discharge. Hospital course was complicated by rectal bleeding. Gastroenterology was consulted but patient refused any workup with gastroenterology. CT of the abdomen and pelvis showed pandiverticulosis and showed an enlarged prostate measuring up to 6 cm transversely with a median lobe protruding into the bladder. Patient said he had lower GI bleed because he ate popcorn. Hemoglobin was 12.7. As stated he refused any workup with GI. He remained stable and did well with therapy. He was discharged home on 02/28/2024 on p.o. Levaquin 750 mg daily for 5 days. He is to follow-up with his primary care doctor within 1 to 2 weeks. He was also referred to urology on outpatient basis. Patient was all. Send for enlarged prostate and he was continued on this. Patient seen and examined prior to discharge. He had no complaints and had an uneventful night. Review of systems was otherwise negative. Labs and vitals reviewed. Home medication reviewed and reconciled. Physical Exam Const alert, oriented x3 and no apparent distress General Appearance: cooperative and comfortable Orientation / Consciousness: awake Exam Limitations: no limitations HEENT normocephalic, head/scalp atraumatic, hearing grossly normal bilaterally, moist oral mucous membranes and oropharynx normal Mouth: oral and palatal mucosa normal Eyes EOMs intact bilaterally and conjunctivae normal Resp normal respiratory effort, no retractions, no use of accessory muscles and clear to auscultation bilaterally Cardio regular rate, regular rhythm, S1 normal heart sound, S2 normal heart sound and no murmurs GI normal to inspection, nondistended, normoactive bowel sounds, soft to palpation, non-tender and non-distended Extremity normal to inspection and full ROM Skin no rashes or lesions noted and no wounds Neuro oriented x3, CN's II-XII intact bilaterally, moves all extremities and no focal motor deficits Sensorium / Orientation: awake and alert Motor Exam: strength 5/5 throughout Psych affect normal Weight / BMI Weight Weight: 207 lb 3.752 oz Body Mass Index (BMI) 27.4 ABG / Lab / Microbiology Data 02/28/24 05:23 02/28/24 05:23 Laboratory: Laboratory Results - last 24 hr 02/28/24 05:23: WBC 8.1, RBC 5.35, Hgb 14.9, Hct 47.9, MCV 89.5, MCH 27.9, MCHC 31.1 L, RDW Std Deviation 49.0 H, RDW Coeff of Alyse 15.0 H, Plt Count 184, MPV 10.3, Immature Gran % (Auto) 0.200, Neut % (Auto) 68.6, Lymph % (Auto) 21.7, [place] % (Auto) 7.0, Eos % (Auto) 2.0, Baso % (Auto) 0.5, Absolute Neuts (auto) 5.6, Absolute Lymphs (auto) 1.77, Nucleated RBC % 0, Sodium 140, Potassium 3.7, Chloride 112 H, Carbon Dioxide 23.0, Anion Gap 5, BUN 11, Creatinine 0.90, Estim Creat Clear Calc 80.15, Est GFR (MDRD) Af Amer 106, Est GFR (MDRD) Non-Af 87, BUN/Creatinine Ratio 12.2, Glucose 85, Calcium 9.4 Microbiology: Microbiology 02/25/24 21:30 Urine, Clean Catch Urine Culture - Preliminary Gram Positive Cocci 02/25/24 22:55 Blood Culture (Wb) - Anticubital Left Blood Culture - Preliminary No growth in 48 hours. 02/25/24 22:37 Blood Culture (Wb) - Anticubital Right Blood Culture - Preliminary No growth in 48 hours. 02/25/24 21:45 Stool Stool Occult Blood (HUAN) - Final D/C Instructions Discharge Diet: Low fat / Low cholesterol Discharge Activity: Return to Normal Activity Weight Bearing Status: Weight bearing as tolerated Call your doctor if you observe: Fever of 101 or Higher, Shortness of breath, Dizziness, Swelling in the ankles and Chest pain Meaningful Use Info Meaningful Use Meaningful Use Diagnoses (Choose all that apply): None applicable Ischemic Stroke Statin Dosing Therapy Reference: STATIN DOSE THERAPY REFERENCE: * Patients > 75 years receive moderate or high dose statin therapy. * Patients 75 years or YOUNGER should receive HIGH intensity statin dose unless contraindicated. You will be required to document reason for non-treatment if statin daily dose does not meet guidelines. HIGH DOSE STATIN THERAPY DAILY Atorvastatin > than or = to 40 mg Rosuvastatin > than or = to 20 mg Amlodipine + Atorvastatin > than or = to 2.5/40 mg Ezetimibe + Simvastatin 10/80 mg Simvastatin 80mg Discharge Plan Admission Admit Date/Time: 02/25/24 22:56 Primary Reason for Your Visit: sepsis due to UTI Attending Provider: Sophie Tompkins Primary Care Provider: [facility],[place] Consulting Providers: Dread Melchor; Jorge Combs; Dread Prajapati Instructions Patient Instructions: ED Bladder Infection, Male (Adult) Discharge Orders/Prescriptions Prescriptions: New levofloxacin 750 mg tablet 750 mg PO DAILY Qty: 5 0RF Continued lisinopril 5 MG tablet 5 mg PO DAILY alfuzosin 10 MG tablet extended release 24 hr 10 mg PO DAILY Eliquis 5 MG tablet 5 mg PO BID metoprolol succinate 100 MG tablet 150 mg PO DAILY 30 Days Qty: 30 3RF lisinopril 5 MG tablet 5 mg PO DAILY 30 Days Qty: 30 6RF Referrals / Follow Up: Jorge Combs DO [Med Staff - Active Staff] - Within 2 Weeks [facility] [Primary Care Provider] - Within 1 Week Geovani Wells MD [Med Staff - Active Staff] - Within 2 Weeks Disposition Disposition (needs filled in before D/C Order can be placed): Home, Self Care Charges/Coding Visit Charges Inpatient E&M: 38469 Disch Hosp >30min
--- NOTE | 2024-02-28 14:39 | PHA.DC_ITS ---
Pharmacy [facility] has performed discharge medication reconciliation and counseling for this patient. The patient's discharge medication list was reviewed for discrepancies and discrepancies were resolved. The patient was counseled on the following discharge medications and changes in medications for homegoing were reviewed. 1. LEVTODDUIN The Reason for Use, instructions for use, and potential side effects were reviewed for all new medications. The patient's questions regarding all of their medications were answered. The patient was able to verbally demonstrate an understanding of their discharge medications. the patient was counselled by Hue Anderson PharmD Candidate Medications at Discharge Home Medications alfuzosin 10 mg tablet,extended release 24 hr 10 mg PO DAILY prostate 03/02/18 apixaban 5 mg tablet (Eliquis) 5 mg PO BID blood thinner 03/02/18 lisinopril 5 mg tablet 5 mg PO DAILY blood pressure 03/02/18 lisinopril 5 mg tablet 5 mg PO DAILY 30 days #30 tabs 03/03/18 metoprolol succinate 100 mg tablet,extended release 24 hr 150 mg (1.5 x 100 mg) PO DAILY 30 days #30 tabs 03/03/18 levofloxacin 750 mg tablet 750 mg PO DAILY #5 tabs 02/28/24
--- NOTE | 2024-02-28 15:40 | NURSING ---
Patient instructed that MD recommends he follow up with a urologist after discharge. Patient given office information for Dr. Wells and instructed to call for an appointment
== END 2024-02-28 17:20 | disposition home or self-care (01) | DRG 872 ==
LOC: ED 22:45 → ICU 23:11 → MS3 02-26 09:23
PROVIDERS: Internal Medicine; Nurse Practitioner; Admitting Provider Internal Medicine; Emergency Provider Emergency Medicine; Visit Provider Student in an Organized Health Care Education/Training Program
DX: A41.9 Sepsis, unspecified organism (principal); K62.5 Hemorrhage of anus and rectum; N30.00 Acute cystitis without hematuria; E66.9 Obesity, unspecified; I48.0 Paroxysmal atrial fibrillation; I10 Essential (primary) hypertension; M19.90 Unspecified osteoarthritis, unspecified site; E78.5 Hyperlipidemia, unspecified; K59.09 Other constipation; F17.210 Nicotine dependence, cigarettes, uncomplicated; N40.1 Benign prostatic hyperplasia with lower urinary tract symptoms; R35.1 Nocturia; N39.490 Overflow incontinence; Z68.31 Body mass index [BMI] 31.0-31.9, adult; Z88.0 Allergy status to penicillin; Z88.2 Allergy status to sulfonamides; Z79.01 Long term (current) use of anticoagulants; Z79.899 Other long term (current) drug therapy; Z86.73 Personal history of transient ischemic attack (TIA), and cerebral infarction without residual deficits; R35.0 Frequency of micturition
CPT/HCPCS: 36415; 71045; 74176; 80048; 80053; 80061; 81001; 82274; 83605; 83735; 84100; 84153; 84443; 85025; 87040; 87086; 87088; 93005; 97110; 97116; 97162; 99285; 99406; J7030; J7050; A4216; G0103